=== PATIENT | female | born 1980 | race Caucasian/White ===

== ENCOUNTER → 2019-12-03 17:08 | Outpatient (CLI) | payer OTHER, SELFPAY ==
--- NOTE | ~2019-12-03 | MM_ITS ---
EXAMINATION: MM screening wolf BI w ace HISTORY: Baseline screening mammogram TECHNIQUE: Craniocaudal and mediolateral oblique 3-D tomosynthesis images were obtained and synthetic 2-D images were generated. CAD analysis was submitted and interpreted. COMPARISON: None, baseline BREAST PARENCHYMAL COMPOSITION: The breasts are heterogeneously dense, which may obscure small masses . FINDINGS: RIGHT BREAST: There is no evidence of suspicious mass, calcification, or architectural distortion to suggest malignancy. LEFT BREAST: There is possible architectural distortion in the subareolar aspect of the left breast. IMPRESSION: 1. Possible architectural distortion of the subareolar left breast. 2. Additional mammographic views and possible breast ultrasound are recommended to evaluate for malig mynor and establish a baseline given that this is the first mammographic examination. BI-RADS Category 0: Incomplete: Needs additional imaging evaluation. Reviewed, dictated and finalized at location A. IMPRESSION: 1. Possible architectural distortion of the subareolar left breast. 2. Additional mammographic views and possible breast ultrasound are recommended to evaluate for malignancy and establish a baseline given that this is the fir st mammographic examination. BI-RADS Category 0: Incomplete: Needs additional imaging evaluation.
== END ==
PROVIDERS: Visit Provider Obstetrics & Gynecology
DX: Z12.31 Encounter for screening mammogram for malignant neoplasm of breast (principal); R92.8 Other abnormal and inconclusive findings on diagnostic imaging of breast
CPT/HCPCS: 77063; 77067

== ENCOUNTER → 2019-12-24 09:22 | Outpatient (CLI) | payer OTHER, SELFPAY ==
--- NOTE | ~2019-12-24 | MM_ITS ---
EXAMINATION: MM diagnostic mammo unilat LT HISTORY: Possible architectural distortion reported in subareolar left breast on 12/03/2019 screening m ammogram TECHNIQUE: Additional 3-D tomosynthesis images of the left breast were performed and synthetic 2-D im ages were generated. CAD analysis was submitted and interpreted. COMPARISON: 12/03/2019 bilateral digital screening mammogram FINDINGS: No reproducible mass or architectural distortion, malignant calcification, skin thickening or retraction is evident. IMPRESSION: 1. No mammographic evidence of malignancy 2. Routine annual mammographic screening is recommended. BI-RADS Category 1: Negative Reviewed, dictated and finalized at location A.
== END ==
PROVIDERS: Visit Provider Obstetrics & Gynecology
DX: R92.8 Other abnormal and inconclusive findings on diagnostic imaging of breast (principal)
CPT/HCPCS: 77065

== ENCOUNTER 2020-01-04 07:53 | Outpatient (CLI) | payer OTHER, SELFPAY ==
--- NOTE | ~2020-01-04 | XR_ITS ---
EXAMINATION: XR barium swallow DATE: 01/04/2020 08:36 INDICATION: Dysphagia. TECHNIQUE: The patient drank thick barium, gas-producing crystals, and thin barium. Fluoroscopy of th e hypopharynx and esophagus was performed. Fluoroscopy exposure time was 0.5 minutes. The total numbe r of images was 267. The dose-area product was 0.9 Gy-cm^2. COMPARISON: None. FINDINGS: There is no mass or stricture of the esophagus. Esophageal motility is normal. There is no hiatal hernia. There was no gastroesophageal reflux with provocative maneuvers. IMPRESSION: 1. Normal esophagram. Reviewed, dictated and finalized at location A. IMPRESSION: 1. Normal esophagram.
== END 2020-01-04 07:54 | disposition home or self-care (01) ==
LOC: ANHIMG 07:54
PROVIDERS: PCP Family Medicine Adolescent Medicine; Visit Provider Otolaryngology
DX: R13.10 Dysphagia, unspecified (principal)
CPT/HCPCS: 74220

== ENCOUNTER 2020-05-27 15:13 | Emergency (ER) | payer OTHER, SELFPAY ==
--- NOTE | ~2020-05-27 | CT_ITS ---
EXAMINATION: CT abdomen pelvis w con DATE: 05/27/2020 17:29 INDICATION: Right-sided abdominal pain. History of colitis. TECHNIQUE: Computed tomography (CT) of the abdomen and pelvis was performed with 100 cc Omnipaque 350 intravenous contrast. The dose-length product was 241.45 mGy-cm. Automated exposure control and iter ative reconstruction technique were employed. COMPARISON: None. FINDINGS: Lung bases unremarkable. Heart size normal. There is a mass partially visualized right lowe r breast. No significant pleural or pericardial effusion. The liver, spleen, pancreas, adrenal glands and kidneys are unremarkable. Gallbladder is present. The re is a complex right adnexal cyst measuring 4.8 x 4 cm. Nonobstructive bowel gas pattern. Small amou nt of free fluid in the pelvis. No acute osseous abnormality. Moderate lumbar spondylosis lower lumba r spine. IMPRESSION: 1. Complicated 4.8 cm right adnexal cyst, likely ovarian. Reviewed, dictated and finalized at location A.
[2020-05-27 15:51] VITALS: BP 116/70; PULSE 85; RESP 14; TEMP 36.9; O2SAT 97
[2020-05-27 16:05] LABS: Basophils Percent Auto 0.4 % (0.2-1.2); Eosinophils Absolute Auto 0.1 K/mm3 (0-0.3); Eosinophils Percent Auto 0.9 % (0-4.4); Hematocrit 44.6 % (37.0-47.0); Hemoglobin 15.3 g/dL (12.0-15.0); Immature Granulocyte Absolute 0.02 K/mm3 (0.00-0.031); Immature Granulocyte Percent A 0.2 % (0-0.5); Lymphocytes Absolute Auto 1.93 K/mm3 (0.9-3.2); Mean Corpuscular HGB Conc 34.3 g/dl (32-36); Mean Corpuscular Hemoglobin 30.1 pg (26-34); Mean Corpuscular Volume 87.8 fl (80-100); Mean Platelet Volume 8.9 fl (7.4-10.4); Monocytes Absolute Auto 0.4 K/mm3 (0.1-0.6); Monocytes Percent Auto 5.2 % (2.6-8.5); Neutrophils Absolute Auto 5.6 K/mm3 (1.3-6.7); Neutrophils Percent Auto 69.3 % (45.5-73.1); Platelet Count Result 240 k/mm3 (150-375); Red Blood Count 5.08 M/mm3 (4.2-5.4); White Blood Count 8.1 K/mm3 (4.5-10.0)
[2020-05-27 16:13] LABS: Alanine Aminotransferase 14 U/L (4-35); Albumin Level 4.5 g/dL (3.5-5.1); Alkaline Phosphatase 47 U/L (38-126); Anion Gap 6 mmol/L (8-16); Aspartate Amino Transferase 18 U/L (14-36); Bilirubin,Total 0.5 mg/dL (0.2-1.3); Blood Urea Nitrogen 13 mg/dL (7-17); Carbon Dioxide 27 mmol/L (22-30); Chloride 106 mmol/L (98-107); Estimated CRCL calculation 68 ml/min; Estimated Glomerular Filt Rate > 60; Glucose 106 mg/dL (65-105); Lipase 68 U/L (23-300); Potassium 3.9 mmol/L (3.4-5.0); Sodium 139 mmol/L (137-145)
--- NOTE | 2020-05-27 16:23 | ED.ABDPAIN ---
HPI - Abdominal Pain General Chief Complaint: Abdominal Pain Stated Complaint: severe abd pain Time Seen by Provider: 05/27/20 16:22 Source: patient Mode of arrival: ambulatory Limitations: no limitations History of Present Illness HPI narrative: Pt presented for right sided abdominal pain. Pain is been present over 12 hours. Pain is dull, aching in nature, actually improved from earlier this morning. Patient states her pain was at its highest earlier this morning after she returned home from work. She states she was able to get some sleep and still had aching pain on the right side. Patient states she has a history of colitis and flareups which she occasionally takes budesonide for and follows with Dr. Vasquez with gastroenterology. Not currently on any steroids. Patient denies nausea, vomiting, diarrhea. She denies fever or chills. Related Data Home Medications Medication Instructions Recorded Confirmed Adult Probiotic 08/05/19 Trintellix 5 mg PO DAILY 08/05/19 08/05/19 oxybutynin chloride 10 mg PO DAILY 08/05/19 08/05/19 spironolactone 25 mg PO DAILY 08/05/19 08/05/19 cetirizine 10 mg tablet 10 mg PO DAILY 01/03/20 dextromethorphan-guaifenesin ER 60 1 tablet PO Q12H 01/03/20 mg-1,200 mg tab,extend release,12hr esomeprazole magnesium 20 mg 20 mg PO DAILY 01/03/20 capsule,delayed release loratadine 10 mg tablet 10 mg PO DAILY 01/03/20 budesonide PO 05/27/20 Allergies Allergy/AdvReac Type Severity Reaction Status Date / Time No Known Allergies Allergy Verified 05/27/20 16:15 Review of Systems Review of Systems: Narrative: CONSTITUTIONAL: Denies fever, chills CARDIOVASCULAR: Denies chest pain RESPIRATORY: Denies cough or dyspnea. GASTROINTESTINAL: Reports abdominal pain, nausea, denies vomiting or diarrhea GENITOURINARY: Denies dysuria or hematuria. SKIN: Denies rash or itching. MUSCULOSKELETAL: Denies back pain, joint pain, or myalgia. NEUROLOGIC: Denies headache, numbness, or weakness. [facility] Past Medical History Medical History Anxiety Colitis Depression GERD (gastroesophageal reflux disease) Surgical History Surgical History H/O hysterectomy for benign disease History of bilateral tubal ligation Social History Social History Smoking status: Smoker, status unknown Alcohol intake: current Gender identity (if verbalized by the patient): Female Exam Narrative: Exam Narrative: GENERAL: Awake, alert, conversant HEAD: Normocephalic, atraumatic. EYES: PERRLA and EOMI. ENT: Nares clear, no rhinorrhea or epistaxis. Mucous membranes moist. NECK: Supple. CHEST: No respiratory distress, breathing even and non labored HEART: Regular rate, sinus rhythm ABDOMEN:Non distended, mild right lower quadrant tenderness, no rebound or guarding EXTREMITIES: Normal range of motion. No edema. SKIN: Warm, dry, no rash. NEURO:No focal deficits. Alert and oriented x3 Course Vital Signs Vital signs: Vital Signs Temperature 36.9 C 05/27/20 15:51 Pulse Rate 85 05/27/20 15:51 Respiratory Rate 14 05/27/20 15:51 Blood Pressure 116/70 05/27/20 15:51 Pulse Oximetry 97 05/27/20 15:51 Temperature 36.8 C 05/27/20 18:10 Pulse Rate 44 L 05/27/20 18:10 Respiratory Rate 18 05/27/20 18:10 Blood Pressure 118/79 05/27/20 18:10 Pulse Oximetry 100 05/27/20 18:10 MDM - Abdominal Pain MDM Narrative Medical decision making narrative: Patient presented for evaluation of right lower quadrant abdominal pain. At the time of assessment, ABCs are intact and vital signs are stable. Patient with mild right lower quadrant tenderness without peritoneal signs. IV access obtained and labs are drawn. Laboratory results are reassuring. No UTI. No leukocytosis. CT scan does not show any appendicitis but does show a complex r
[2020-05-27 16:25] LABS: Add Urine Microscopic? NO; Appearance Urine Clear (Clear); Bilirubin Urine Negative (Negative); Blood Urine Negative (Negative); Color Urine Colorless (Yellow); Glucose Urine UA Negative (Negative); Ketones Urine Negative (Negative); Leukocyte Esterase Ur Negative LEU/UL (Negative); Nitrate Urine Negative (Negative); Protein Urine Negative (Negative); Specific Grav Ur 1.006 (1.001-1.035); Urobilinogen Urine Negative mg/dL (<2.0)
[2020-05-27 18:10] VITALS: BP 118/79; PULSE 44; RESP 18; TEMP 36.8; O2SAT 100
== END 2020-05-27 18:11 | disposition home or self-care (01) ==
PROVIDERS: Emergency Provider Emergency Medicine; PCP Family Medicine Adolescent Medicine
DX: N83.291 Other ovarian cyst, right side (principal); F41.9 Anxiety disorder, unspecified; F32.9 Major depressive disorder, single episode, unspecified; K21.9 Gastro-esophageal reflux disease without esophagitis; N63.10 Unspecified lump in the right breast, unspecified quadrant
CPT/HCPCS: 36415; 74177; 80053; 81003; 83690; 85025; 99284; Q9967

== ENCOUNTER 2020-06-07 09:57 | Outpatient (CLI) | payer OTHER, SELFPAY ==
--- NOTE | ~2020-06-07 | MMUS_ITS ---
EXAMINATION: MM diagnostic wolf BI w ace, US breast BI complete HISTORY: Breast mass TECHNIQUE: Additional 3-D tomosynthesis images of the breasts were performed and synthetic 2-D images were generated. CAD analysis was submitted and interpreted. High resolution bilateral breast ultraso und was performed. COMPARISON: Comparison to multiple prior studies sequentially, with oldest reviewed study dated 02/2020. BREAST PARENCHYMAL COMPOSITION: The breasts are heterogenously dense, which may obscure small masses. FINDINGS: MAMMOGRAPHIC FINDINGS: There are no suspicious masses, calcifications or architectural distortion in either breast to sugges t malignancy. ULTRASOUND: Bilateral breast ultrasound: Right breast echotexture is normal without focal solid or cystic mass. I n the left breast at 1:00, 1 cm from the nipple, there is a 6 mm cyst. At 7:00, 5 cm from the nipple, there is a 5 mm cyst. IMPRESSION: 1. No evidence for malignancy in either breast. Benign findings. 2. Routine yearly screening mammogram and regular clinical breast examination are recommended. BI-RADS Category 2: Benign finding(s). Reviewed, dictated and finalized at location A. IMPRESSION: 1. No evidence for malignancy in either breast. Benign findings. 2. Routine yearly screening mammogram and regular clinical breast examination a re recommended. BI-RADS Category 2: Benign finding(s).
== END 2020-06-07 09:58 | disposition home or self-care (01) ==
PROVIDERS: PCP Family Medicine Adolescent Medicine; Visit Provider Obstetrics & Gynecology
DX: N63.10 Unspecified lump in the right breast, unspecified quadrant (principal)
CPT/HCPCS: 76641; 77062; 77066; G0279

== ENCOUNTER → 2021-01-09 15:57 | Outpatient (CLI) | payer OTHER, SELFPAY ==
--- NOTE | ~2021-01-09 | MM_ITS ---
EXAMINATION: MM screening [facility] BI w ace HISTORY: Screening TECHNIQUE: Craniocaudal and mediolateral oblique 3-D tomosynthesis images were obtained and synthetic 2-D images were generated. CAD analysis was submitted and interpreted. COMPARISON: 12/03/2019 BREAST PARENCHYMAL COMPOSITION: There are scattered areas of fibroglandular density. FINDINGS: The right breast is stable without evidence for malignancy. There is an enlarging 8 mm mass in the lower inner quadrant of the left breast near the skin surface. There are additional benign-ap pearing left breast masses which are not significantly changed. There is no evidence of suspicious ma ss, calcification, or architectural distortion to suggest malignancy in either breast. There has been no suspicious interval change. IMPRESSION: 1. Enlarging left breast mass, lower inner quadrant. 2. Complete left breast ultrasound recommended. BI-RADS Category 0: Incomplete: Needs additional imaging evaluation. Reviewed, dictated and finalized at location A.
== END ==
PROVIDERS: Visit Provider Obstetrics & Gynecology
DX: Z12.31 Encounter for screening mammogram for malignant neoplasm of breast (principal)
CPT/HCPCS: 77063; 77067

== ENCOUNTER → 2021-02-07 08:16 | Outpatient (CLI) | payer OTHER, SELFPAY ==
--- NOTE | ~2021-02-07 | US_ITS ---
EXAMINATION: US breast LT limited HISTORY: Left breast mass on screening mammogram TECHNIQUE: Limited left breast ultrasound is performed. COMPARISON: 01/09/2021, 06/07/2020 FINDINGS: There is a 10 mm x 4 mm oval, circumscribed, parallel, cystic mass with internal septation at the 6:00 location 3.5 cm from the nipple corresponding to the finding in question on recent screen ing mammogram. The mass is slightly increased in size since the most recent comparison ultrasound. Th ere are no posterior features or internal vascularity. IMPRESSION: Likely complicated cyst of left breast. Follow-up cartilage left breast ultrasound in six months is r ecommended. BI-RADS category 3, probably benign findings. Reviewed, dictated and finalized at location A. IMPRESSION: Likely complicated cyst of left breast. Follow-up cartilage left breast ultraso und in six months is recommended. BI-RADS category 3, probably benign findings.
== END ==
PROVIDERS: Visit Provider Obstetrics & Gynecology
DX: N60.02 Solitary cyst of left breast (principal)
CPT/HCPCS: 76642

== ENCOUNTER 2021-06-15 10:25 | Outpatient (CLI) | payer OTHER, SELFPAY | END 2021-06-15 10:26 | disposition home or self-care (01) | LOC: ANHSURGERY 10:31 | PROVIDERS: Visit Provider Obstetrics & Gynecology | DX: Z01.812 Encounter for preprocedural laboratory examination (principal); N39.3 Stress incontinence (female) (male) | CPT/HCPCS: 36415; 86850; 86900; 86901 ==

== ENCOUNTER 2021-06-22 | Day surgery (SDC) | payer OTHER, SELFPAY ==
[2021-06-14 11:20] VITALS: BMI 25.8
--- NOTE | 2021-06-20 07:54 | PM.IMHP ---
H&P: HPI History of Present Illness Date/Time: 06/20/21 07:54 This 41-year-old female with pelvic pain and stress urinary incontinence refractory to physical therapy. The patient complains of stress urinary incontinence. She has tried Kegel's and had no success. She is status post hysterectomy. She also was had pelvic pain and dyspareunia. Ultrasound was relatively help less. Risks and benefits of these procedures were reviewed in great detail Chief Complaint: Stress urinary incontinence and pelvic pain Review of Systems Review of Systems: All systems reviewed & are unremarkable except as noted in HPI and below PMFSH Past Medical History Medical History Anxiety Bloating Colitis Depression GERD (gastroesophageal reflux disease) Microscopic colitis Surgical History Surgical History H/O hysterectomy for benign disease History of bilateral tubal ligation Social History Social History Smoking packs per day: 0.5 Smoking cigarettes per day: 10.0 Years smoked: 18 Smoking pack-years: 9.00 Smoking status: Former smoker Tobacco type: cigarettes Smoking end date: 07/30/20 Alcohol intake: current Substance use: never Gender identity (if verbalized by the patient): Female Spiritual care concerns: No Meds Home Medications and Allergies Home Medications Medication Instructions Recorded Confirmed Type Adult Probiotic 1 cell PO DAILY 08/05/19 06/14/21 History Trintellix 5 mg PO DAILY 08/05/19 06/14/21 History oxybutynin chloride 10 mg PO DAILY 08/05/19 06/14/21 History cetirizine 10 mg tablet 10 mg PO DAILY 01/03/20 06/14/21 History esomeprazole magnesium 20 mg 20 mg PO DAILY 01/03/20 06/14/21 History capsule,delayed release calcium-vits T7-G-X9-minerals 1 tablet PO BID 06/14/21 06/14/21 History [Bone Essentials] zinc sulfate-vitamin C [Vitamin C 1 tablet PO DAILY 06/14/21 06/14/21 History Plus Zinc] Allergies Allergy/AdvReac Type Severity Reaction Status Date / Time No Known Allergies Allergy Verified 06/14/21 11:14 Exam Const: General: no acute distress Eyes: General: appearance normal, both eyes and all related structures Neck: Neck: supple and no JVD Thyroid: thyroid normal Resp: Effort & Inspection: normal respiratory effort Auscultation: clear to auscultation bilaterally Cardio: Rate: regular rate Rhythm: regular rhythm GI: Inspection: non-distended GI Palp: Yes Soft to palpation, No Tenderness to palpation present (GI) and No Guarding due to palpation present (GI) Auscultation: normal bowel sounds : External Female Exam: normal external appearance Speculum Exam - Vagina: normal appearance of the vagina and tenderness (Urethral hyper reactive to Valsalva maneuver) Speculum Exam - Cervix: Cervix absent Bimanual exam- vagina & uterus: uterus absent Bimanual Exam- Adnexa, other: tender bilaterally Skin: General skin exam: no rashes or lesions noted Extrem: General: normal to inspection and no edema Psych: Mental Status: mental status grossly normal Affect: normal affect Assessment and Plan Additional Plan Impression: Stress urinary incontinence and pelvic pain in a patient status post hysterectomy Plan: Tension-free vaginal tape with cystoscopy. Diagnostic laparoscopy
[2021-06-22] VITALS (11 sets, daily range): BP systolic 101–126; BP diastolic 59–86; PULSE 45–99; RESP 12–18; TEMP 36.2–36.9; O2SAT 98–100
--- NOTE | 2021-06-22 07:13 | WPDHPUPDATE1 ---
History and Physical Update Update Date/Time: 06/22/21 07:13 History and Physical has been reviewed, including an updated exam of the patient. There are NO changes in the patient's condition. Risks, benefits, and alternatives have been discussed and questions answered. Patient agrees to proceed with procedure.
[2021-06-22] MEDS: LACTATED RINGERS 1,000 ML 30 ML IV CONT ×3 (12:05→17:03)
[2021-06-22] MEDS: ACETAMINOPHEN 500 MG TABLET 1000 MG PO (12:12)
[2021-06-22] MEDS: KETOROLAC 15 MG/ML VIAL (*BKC) IV PUSH (12:13)
--- NOTE | 2021-06-22 12:49 | WPDANESEPPF ---
Anes - Initial Pre Proc Eval Procedure: Operation Date: 06/22/21 13:30 Proposed Procedures p Tension Free Vaginal Taping - Kingsley Leblanc MD s Diagnostic Laparoscopy - Kingsley Leblanc MD Date/Time: 06/22/21 12:49 Surgeon: Kingsley Leblanc MD Pre Op Diagnosis: EN Patient Data Age: 41 Gender: F Height: 1.68 m Weight: 72.8 kg Last Vital Signs Temp 36.9 C 06/22/21 12:19 Pulse 45 L 06/22/21 12:19 Resp 18 06/22/21 12:19 BP 107/61 06/22/21 12:19 Pulse Ox 98 06/22/21 12:19 Allergies Allergy/AdvReac Type Severity Reaction Status Date / Time No Known Allergies Allergy Verified 06/22/21 11:31 Home Medications Medication Instructions Recorded Confirmed Type Adult Probiotic 1 cell PO DAILY 08/05/19 06/22/21 History Trintellix 5 mg PO DAILY 08/05/19 06/22/21 History oxybutynin chloride 10 mg PO DAILY 08/05/19 06/22/21 History cetirizine 10 mg tablet 10 mg PO DAILY 01/03/20 06/22/21 History esomeprazole magnesium 20 mg 20 mg PO DAILY 01/03/20 06/22/21 History capsule,delayed release calcium-vits I2-Z-D6-minerals 1 tablet PO BID 06/14/21 06/22/21 History [Bone Essentials] zinc sulfate-vitamin C [Vitamin C 1 tablet PO DAILY 06/14/21 06/22/21 History Plus Zinc] hydrocodone-acetaminophen 1 tablet PO Q4H PRN #30 tablet 06/22/21 Rx Patient hx anesthesia problems: none Family hx anesthesia problems: none Results Review: All pre-operative results and documents have been reviewed as part of the pre-operative evaluation. [facility], [facility] Past Medical History Medical History Anxiety Bloating Colitis Depression GERD (gastroesophageal reflux disease) Microscopic colitis Surgical History Surgical History H/O hysterectomy for benign disease History of bilateral tubal ligation Social History Social History Smoking packs per day: 0.5 Smoking cigarettes per day: 10.0 Years smoked: 18 Smoking pack-years: 9.00 Smoking status: Former smoker Tobacco type: cigarettes Smoking end date: 07/30/20 Alcohol intake: current Substance use: never Living arrangements: with family Gender identity (if verbalized by the patient): Female Spiritual care concerns: No Anes - Eval Final PreProcedure Day of Procedure 06/22/21 12:49 Patient weight: overweight Heart: regular rate and rhythm Lungs: clear to auscultation Airway: Mallampati scale class II Neurological: alert and oriented Last oral intake: >/= 8 hours ASA classification: II Emergent: no Anesthetic plan: proceed Anesthesia type and monitoring: general ETT and standard monitoring Results Review: All pre-operative results and documents have been reviewed as part of the pre-operative evaluation. Informed Consent: The patient's anesthetic plan and its attendant risks and benefits were discussed with the patient/family/POA. Questions were solicited and answers provided to the satisfaction of the patient/family/POA.
[2021-06-22] MEDS: SCOPOLAMINE 1.5 MG PATCH TRANSDERM (13:13)
[2021-06-22] MEDS: ceFAZolin 2 GM/D5W 50 ML 2 GM/50 ML BAG IVPB (13:16)
--- NOTE | 2021-06-22 14:20 | P.OP_ITS ---
Procedure Note - Detailed Date of Procedure 06/22/21 Pre-op Diagnosis EN Pelvic pain and endometriosis Left ovarian cyst Post-op Diagnosis same Procedure Performed laparoscopy with destruction of endometriosis and left ovarian cyst Cystoscopy Tension-free vaginal tape Surgeon Kingsley Leblanc MD Anesthesia general Indications this is a 41-year-old status post hysterectomy with pelvic pain and stress urinary incontinence Findings on laparoscopy absent uterus. Ovaries and tubes were present with the left ovarian cyst. Endometriosis along the left and right uterosacral ligaments Description of Procedure the patient was prepped draped in the normal sterile fashion placed in the dorsal lithotomy position. Under excellent general trach anesthesia weighted speculum placed in posterior fornix vagina. A sponge stick was placed in the vagina. The gloves were changed An infraumbilical incision made the Veress needle passed in the abdomen. Abdomen filled with CO2 gas [id number]. The 5mm trocar advanced under direct visualization assuring no injury. The patient placed in Trendelenburg and a suprapubic incision made. The 5mm trocar advanced under direct visualization assuring no injury. The areas of endometriosis were seen in photo documentation undertaken cauterization was undertaken at 35 w per 2nd without difficulty. Irrigation was undertaken. A left ovarian cyst was present and this was opened in linear fashion and drained of clear fluid. The gas removed from the abdomen and the trocars removed. The incisions closed with 4 O Monocryl and glue. Attention was turned to the cystoscopy. A 18 [place] catheter was placed in the bladder draining clear urine. Mid urethral incision was made and the lateral bladder spaces entered by blunt dissection. The catheter guide was placed in the urethra retracted laterally the right retropubic bladder space entered at a 45 degree angle upto30? and through the skin the urethra was retracted to the opposite side and this was followed on the left side. The catheter was removed and a 17 degree cystoscope was inserted and no injury seen. These were then pulled up to the open tightness of an open PN. The plastic removed and tape cut at the suprapubic area. The incision the vagina closed with running Omaira chromic. Blood loss was estimated at5cc and the catheter was then removed. All sponge needle instrument counts were correct. There were no immediate complications Estimated Blood Loss 5 Drains No Packing No Pathology none sent Complications No immediate complications Condition stable
[2021-06-22] MEDS: fentaNYL CITRATE INJ (*CRX) 100 MCG/2 ML VIAL 25 MCG IV PUSH ×4 (14:39→14:55)
[2021-06-22] MEDS: oxyCODONE HCL (*CRX) 5 MG TAB IR PO (15:47)
== END 2021-06-22 17:45 | disposition home or self-care (01) ==
PROVIDERS: Visit Provider Obstetrics & Gynecology
PROC: 0TSD0ZZ Reposition Urethra, Open Approach (ICD-10-PCS; CPT 57288; principal; 2021-06-22 13:30)
PROC: (CPT 49320; 2021-06-22 13:30)
DX: N39.3 Stress incontinence (female) (male) (principal); R10.2 Pelvic and perineal pain; N80.3 Endometriosis of pelvic peritoneum; N83.202 Unspecified ovarian cyst, left side; K21.9 Gastro-esophageal reflux disease without esophagitis; F41.8 Other specified anxiety disorders; Z87.891 Personal history of nicotine dependence
CPT/HCPCS: 57288; 58662; 36415; 86850; 86900; 86901; A9270; C1771; J0330; J0690; J1100; J1170; J1885; J2250; J2405; J2704; J3010; J7030; J7120; Q9968

== ENCOUNTER → 2021-09-19 09:16 | Outpatient (CLI) | payer OTHER, SELFPAY ==
--- NOTE | ~2021-09-19 | US_ITS ---
EXAMINATION: US breast LT limited HISTORY: Six-month follow-up for probably benign left breast mass TECHNIQUE: Limited left breast ultrasound is performed at the 6:00 location. COMPARISON: 02/07/2021 FINDINGS: The previously described mass at the 6:00 location 3.5 cm from the nipple is no longer iden tified. No suspicious cystic or solid mass is present. IMPRESSION: No suspicious mass identified. Routine screening mammography is recommended. BI-RADS Category 1: Negative Reviewed, dictated and finalized at location A. ATIENT PHLEBOTOMIST
== END ==
PROVIDERS: Visit Provider Obstetrics & Gynecology
DX: R92.8 Other abnormal and inconclusive findings on diagnostic imaging of breast (principal)
CPT/HCPCS: 76642

== ENCOUNTER → 2022-01-16 13:23 | Outpatient (CLI) | payer OTHER, SELFPAY ==
--- NOTE | ~2022-01-16 | MM_ITS ---
EXAMINATION: MM screening wolf BI w ace HISTORY: Screening mammogram TECHNIQUE: Craniocaudal and mediolateral oblique 3-D tomosynthesis images were obtained and synthetic 2-D images were generated. CAD analysis was submitted and interpreted. COMPARISON: 09/19/2021, 02/07/2021 Limited left breast ultrasound examination / bilateral screening mammogram 06/07/2020 bilateral diagnostic mammography and bilateral breast ultrasound examination 12/24/2019 left diagnostic mammogram 12/03/2019 bilateral screening mammogram BREAST PARENCHYMAL COMPOSITION: FINDINGS: New circumscribed 6.5 mm mass in the anterior outer left breast on CC projection (CC Tomosy nthesis image 40/70). Diagnostic left mammogram and left breast ultrasound examination recommended. Otherwise there is no evidence of suspicious mass, calcification, or architectural distortion to sug gest malignancy in either breast. There has been no other suspicious interval change. IMPRESSION: 1. New circumscribed 6.5 mm left breast mass 2. Diagnostic left mammogram and left breast ultrasound examination are recommended. BI-RADS Category 0: Incomplete: Needs additional imaging evaluation. Reviewed, dictated and finalized at location A. IMPRESSION: 1. New circumscribed 6.5 mm left breast mass 2. Diagnostic left mammogram and left breast ultrasound examination are recomme nded. BI-RADS Category 0: Incomplete: Needs additional imaging evaluation.
== END ==
PROVIDERS: Visit Provider Obstetrics & Gynecology
DX: Z12.31 Encounter for screening mammogram for malignant neoplasm of breast (principal); R92.8 Other abnormal and inconclusive findings on diagnostic imaging of breast
CPT/HCPCS: 77063; 77067

== ENCOUNTER → 2022-01-25 08:58 | Outpatient (CLI) | payer OTHER, SELFPAY ==
--- NOTE | ~2022-01-25 | MMUS_ITS ---
EXAMINATION: MM diagnostic wolf LT w ace, US breast LT limited HISTORY: Follow-up left breast mass TECHNIQUE: Additional 3-D tomosynthesis images of the left breast were performed and synthetic 2-D im ages were generated. CAD analysis was submitted and interpreted. High resolution Limited left breast ultrasound was performed. COMPARISON: Comparison to multiple prior studies sequentially, with oldest reviewed study dated 02/2020. BREAST PARENCHYMAL COMPOSITION: The breasts are heterogenously dense, which may obscure small masses FINDINGS: MAMMOGRAPHIC FINDINGS: There are 2 adjacent masses in the upper outer quadrant of the left breast, anterior depth. No suspic ious calcifications or architectural distortion. ULTRASOUND: Limited left breast ultrasound: At 12:00, 3 cm from the nipple there are 2 adjacent cysts correspondi ng to the mammographic finding, largest measuring 7 mm. At 3:00 near the areola there is a cluster of microcysts measuring 6 mm. No suspicious masses to suggest malignancy. IMPRESSION: 1. No evidence for malignancy in the left breast. Benign findings. 2. Routine yearly screening mammogram and regular clinical breast examination are recommended. BI-RADS Category 2: Benign finding(s). Reviewed, dictated and finalized at location A. IMPRESSION: 1. No evidence for malignancy in the left breast. Benign findings. 2. Routine yearly screening mammogram and regular clinical breast examination a re recommended. BI-RADS Category 2: Benign finding(s).
== END ==
PROVIDERS: PCP Obstetrics & Gynecology; Visit Provider Obstetrics & Gynecology
DX: N60.02 Solitary cyst of left breast (principal)
CPT/HCPCS: 76642; 77061; 77065; G0279

== ENCOUNTER 2022-07-26 09:05 | Outpatient (CLI) | payer OTHER, SELFPAY ==
--- NOTE | 2022-07-26 09:18 | ECG_ITS ---
Measurements Intervals [place] Rate: 60 P: 55 PA: 130 QRS: -26 QRSD: 80 T: 19 QT: 391 QTc: 394 Interpretive Statements SINUS RHYTHM BASELINE ARTIFACT LOW QRS VOLTAGE IN PRECORDIAL LEADS [QRS DEFLECTION < 1.0 mV IN CHEST LEADS] CANNOT RULE OUT SEPTAL MYOCARDIAL INFARCTION [40+ ms Q WAVE IN V1/V2], PROBABLY OLD ABNORMAL ECG NO PREVIOUS ECG AVAILABLE FOR COMPARISON Electronically Signed On 07-26-2022 16:44:41 CDT by Neel Newman M.D.
[2022-07-26 09:46] LABS: Hematocrit 41.9 % (37.0-47.0); Hemoglobin 14.2 g/dL (12.0-15.0)
== END 2022-07-26 09:06 | disposition home or self-care (01) ==
LOC: ANHSURGERY 09:09
PROVIDERS: Anesthesiology; PCP Registered Nurse; Visit Provider Surgery Plastic and Reconstructive Surgery
DX: Z01.818 Encounter for other preprocedural examination (principal); R94.31 Abnormal electrocardiogram [ECG] [EKG]
CPT/HCPCS: 36415; 85014; 85018; 93005

== ENCOUNTER 2022-07-31 18:25 | Observation (INO) | payer OTHER, SELFPAY ==
--- NOTE | 2022-07-24 10:40 | PC.NURSE ---
Report to the Outpatient Waiting Room, entrance under the green pavilion located off [facility], at time _0730_ on date _07/30/22_. Planned Procedure Time: _0930_. Time changes happen often and if your time is changed the preop area will call you the afternoon before. - You and your visitor will be asked to self-screen and do not enter if you have any COVID symptoms. - We encourage only one visitor and NO visitors under age 16 are allowed at this time. Your visitor will receive communication by the phone number that is given day of service. - The patient visitor is requested to social distance or may leave the building when not with patient due to restrictions. - A mask is required within the hospital. Patients may have clear liquids (water, carbonated beverages, clear teas, apple juice) until 3 hours prior to surgery with a maximum of 20 ounces. - No food from midnight until time of surgery (stop clear liquids by 0630) - Infants may have breast milk until 4 hours before surgery, infant formula 6 hours prior to surgery. - Children will be allowed to drink immediately following surgery. If applicable, please bring a bottle or sippy cup to assist with drinking. Juice, water, soda, and popsicles are readily available. For infants on formula, please bring formula the day of surgery. Pacifiers are allowed. Take the following medications with a SIP of water the morning of surgery: __meds are taken HS Medications to discontinue per physician ___fish oil and supplements _3 days prior___ Date to take last dose Please no make-up, nail swazi, hairspray, perfume, deodorant, or body powder the day of surgery. No jewelry (including any body piercings) or valuables the day of surgery, leave them at home. Please take a shower or bath the night before, or the morning of, surgery with an antibacterial soap. Wear comfortable, loose fitting clothing. Children are encouraged to wear pajamas. - Jewelry must be removed prior to entering the operating room. Rings and piercings that are not removed may be cut off. - The hospital will not accept responsibility for valuables. - Please leave all valuables, including medications, at home the day of surgery. If you are going home after surgery, a licensed dedicated truck driver must drive you home. - NO public transportation without another adult. - We recommend that an adult stay with you for 24 hours following discharge. - We also recommend that you do not drive, make important decision, drink alcoholic beverages, or take any drugs that were not prescribed by your health care provider for at least 24 hours after your discharge time. For Pediatric surgeries, we recommend two adults accompany the child home. Follow any additional instructions given to you from your surgeon. If you or anyone in your household have experienced Covid symptoms in the past week, please notify your surgeon or the nurse liaison at the phone number below for possible testing. Telephone instructions given to _patient__and asked if any additional questions and then verbalized understanding. Patient advised to call surgeon office or pre surgery nurse liaison [phone] if any additional questions.
[2022-07-24 10:52] VITALS: BMI 26.6
[2022-07-30] VITALS (7 sets, daily range): BP systolic 102–118; BP diastolic 70–79; PULSE 66–110; RESP 14–18; TEMP 36.4–37.2; O2SAT 95–100
[2022-07-30 08:05] LABS: Urine Cotinine NEGATIVE
[2022-07-30] MEDS: LACTATED RINGERS 1,000 ML 30 ML IV CONT ×2 (08:06→16:16)
--- NOTE | 2022-07-30 08:48 | WPDANESEPPF ---
Anes - Initial Pre Proc Eval Procedure: Operation Date: 07/30/22 09:30 Proposed Procedures p Bilateral Breast Mastopexy with Galaflex - Juan Goldman MD s Abdominoplasty with Liposuction - Juan Goldman MD Date/Time: 07/30/22 08:48 Surgeon: Juan Goldman MD Pre Op Diagnosis: Micromastia,Breast ptosis,Skin Laxity Patient Data Age: 42 Gender: F Height: 1.68 m Weight: 74.8 kg Last Vital Signs Temp 36.4 C L 07/30/22 07:45 Pulse 66 07/30/22 07:45 Resp 16 07/30/22 07:45 BP 112/74 07/30/22 07:45 Pulse Ox 99 07/30/22 07:45 O2 Del Method Room Air 07/30/22 07:45 Allergies Allergy/AdvReac Type Severity Reaction Status Date / Time No Known Allergies Allergy Verified 07/30/22 08:12 Home Medications Medication Instructions Recorded Confirmed Type lactobacillus combination no.8 3 1 cell PO DAILY 08/05/19 07/24/22 History billion cell capsule (Adult Probiotic) oxybutynin chloride 10 mg 10 mg PO DAILY 08/05/19 07/24/22 History tablet,extended release 24 hr vortioxetine 5 mg tablet 20 mg PO DAILY 08/05/19 07/24/22 History (Trintellix) cetirizine 10 mg tablet (Zyrtec) 10 mg PO DAILY 01/03/20 07/24/22 History hydrocodone 5 mg-acetaminophen 325 1 tablet PO Q4H PRN pain #30 tabs 06/22/21 07/24/22 Rx mg tablet doxycycline hyclate 50 mg capsule 50 mg PO DAILY 10/16/21 07/30/22 History Wellbutrin 5 mg PO HS 07/24/22 07/24/22 History Laboratory Tests 07/30/22 07:51 Cotinine Negative Patient hx anesthesia problems: none and other (motion sickness) Family hx anesthesia problems: other (father slow to awaken) Results Review: All pre-operative results and documents have been reviewed as part of the pre-operative evaluation. [facility] Past Medical History Medical History Anxiety Bloating Colitis Depression GERD (gastroesophageal reflux disease) Microscopic colitis Surgical History Surgical History H/O hysterectomy for benign disease History of bilateral tubal ligation Hx of laparoscopy Family History Family History Other Diabetes mellitus Hypertension Social History Social History Smoking packs per day: 0.5 Smoking cigarettes per day: 10.0 Years smoked: 18 Smoking pack-years: 9.00 Smoking status: Former smoker Tobacco type: cigarettes Smoking end date: 07/30/20 Alcohol intake: current Drinks per week: 1 Alcohol use details: some weeks none Substance use: never Substance use type: does not use Last use: Jul, Living arrangements: with family Additional living arrangements comments: Trent Rivera Gender identity (if verbalized by the patient): Female Spiritual care concerns: No Anes - Eval Final PreProcedure Day of Procedure 07/30/22 08:48 Patient weight: overweight Heart: regular rate and rhythm Lungs: clear to auscultation Airway: Mallampati scale class II Neurological: alert and oriented Last oral intake: >/= 8 hours ASA classification: II Emergent: no Anesthetic plan: proceed Anesthesia type and monitoring: general ETT and standard monitoring Results Review: All pre-operative results and documents have been reviewed as part of the pre-operative evaluation. Informed Consent: The patient's anesthetic plan and its attendant risks and benefits were discussed with the patient/family/POA. Questions were solicited and answers provided to the satisfaction of the patient/family/POA.
[2022-07-30] MEDS: SCOPOLAMINE 1.5 MG PATCH TRANSDERM (09:21)
--- NOTE | 2022-07-30 09:31 | WPDHPUPDATE1 ---
History and Physical Update Update Date/Time: 07/30/22 09:31 History and Physical has been reviewed, including an updated exam of the patient. There are NO changes in the patient's condition. Risks, benefits, and alternatives have been discussed and questions answered. Patient agrees to proceed with procedure.
--- NOTE | 2022-07-30 10:07 | W.PM.PROC2 ---
Procedure Note - Detailed Date of Procedure 07/30/22 Pre-op Diagnosis Micromastia,Breast ptosis,Skin Laxity Post-op Diagnosis Same Procedure Performed 1. Bilateral mastopexy with Galaflex 2. Progressive tension abdominoplasty with suction lipectomy Surgeon Juan Goldman MD Anesthesia General Findings Inverted T Superior medial pedicle mastopexy Galaflex - REF [id number] Lot [id number] Exp 10/29/2024 Lipoaspirate: 3,000 cc Tissue removed: 1,160 grams Description of Procedure They are here today for the above. Previously and again today the risks, benefits, alternatives were discussed in extensive detail. I wanted them to be very realistic about the risks involved as well as expectations. We discussed aftercare and what to monitor for. I was very upfront about the risks of wound breakdown leading to loss of skin, open wounds, and need for additional procedures with permanent abdominal deformity. We discussed DVT/PE risks and management. Made sure answered all of their questions to their satisfaction today and consent was obtained. Marked in the preoperative holding area with their verification. The patient was taken to the operating room placed supine on the operating table. Anesthesia was provided by anesthesiology. A surgical time-out was taken. She was prepped and draped in a standard sterile fashion. Breast Eleven blade was utilized to make a stab incision and infiltrated with low volume tumescent solution. The breast was tailor tacked into place. I tailor tacked the breast into position. Placed her in a sitting position. Verified the nipple-areolar location based on preoperative planning as well as intraoperative observations and measurements in full agreement. She was placed supine. I de-epithelialized the pedicle. I then de-epithelialized the inferior breast tissue to create an autoaugmentation flap based on intercostal traveling freight agent. I elevated medial and lateral tissue flaps as well for planned closure. The autoaugmentation flap was sutured to the chest wall with 2-0 PDS. Galaflex had been soaking on the back table in betadine solution. It was trimmed and sutured into place with 2-0 Vicryl. I closed along the IMF with 2-0 Stratafix. Along the vertical with 2-0 PDS. I closed around the Jai with 3-0 strata fix. 3-0 Monocryl along the vertical. 3-0 Stratafix along the IMF. I finally closed everything with running subcuticular 4-0 Monocryl and tissue glue. Fluffs and surgical bra were placed. Abdomen I placed the patient in a flexed position to verify the upper and lower markings would reach. I then placed supine. A thorough abdominal examination was completed. Stab incisions were made and tumescent solution infiltrated. A liposuction basket cannula was utilized to provide discontinuous undermining. A 10 blade was used to make the upper incision. I continued dissection down to the level of fascia. Elevated just what was necessary for repair of the diastasis. I then again flexed the bed to verify the upper skin flap would reach the lower markings without tension. Once verified I placed her supine once again and a 10 blade used to make the lower incision. I elevated up to level the umbilicus and left the umbilicus intact on a well-vascularized stalk. The intervening tissue was removed. A 2 mm blunt cannula with 0.5% bupivicaine was injected deep to the fascia bilaterally. I plicated the diastasis recti using 0 PDO stratafix barbed suture. This was in 2 separate layers using 2 separate sutures as well. I repaired around the umbilicus leaving plenty of room for well-vascularized stalk of the umbilicus with 2-0 PDS. I also repaired lateral to the rectus using two layers of 0 PDO stratafix. The patient was flexed and starting from superior to inferior began plication using 2-0 Vicryl to obliterate all space in a standard progressive tension fashion. At the umbilicus I marked out the location of the sk
[2022-07-30] MEDS: ceFAZolin 2 GM/D5W 50 ML 2 GM/50 ML BAG IVPB (10:14)
[2022-07-30] MEDS: TRANEXAMIC ACID 1,000MG/ISO100 1,000 MG/100 ML BAG 200 MG IVPB (10:14)
[2022-07-30] MEDS: NACL 0.9% IRRIG POUR BOTTLE 900 ML, GENTAMICIN SULFATE INJ 160 MG, ceFAZolin 2 GM, POVI... IRRIGATION (12:06)
[2022-07-30] MEDS: LACTATED RINGERS IRRIG 1,000 ML, LIDOCAINE HCL 1% LOCAL INJ 50 ML, EPINEPHrine HCL INJ ... INFILTRATE (14:44)
[2022-07-30] MEDS: LIDOCAINE 1% BUFFERED WITH 8.4% SODIUM BICARB 1 ML SYRINGE 30 ML INFILTRATE (14:46)
[2022-07-30] MEDS: BUPIVACAINE/EPINEPHRINE 0.25% 50 ML VIAL 30 ML INFILTRATE (14:47)
[2022-07-30] MEDS: fentaNYL CITRATE INJ (*CRX) 100 MCG/2 ML VIAL 25 MCG IV PUSH ×3 (16:39→16:57)
--- NOTE | 2022-07-30 17:29 | PC.NURSE ---
This patient, Darlene Bain, was received from PACU on 07/30/22 at 1729. Patient/family oriented to unit policies and routines
[2022-07-30] MEDS: KETOROLAC 30 MG/ML VIAL (*BKC) (17:49)
[2022-07-30] MEDS: LACTATED RINGERS 1,000 ML 125 ML IV CONT (17:49)
[2022-07-30] MEDS: GABAPENTIN 300 MG CAPSULE PO (18:54)
[2022-07-30] MEDS: carisoprodoL (*CRX) 350 MG TABLET PO (18:54)
[2022-07-30] MEDS: oxyCODONE/ACETAMINOPHEN (*CRX) 5-325 MG TABLET PO ×2 (18:54→23:07)
[2022-07-30] MEDS: ENOXAPARIN 40 MG/0.4 ML SYRINGE SUB-Q (23:00)
[2022-07-30] MEDS: DOCUSATE SODIUM 100 MG CAPSULE PO (23:00)
[2022-07-31] MEDS: carisoprodoL (*CRX) 350 MG TABLET PO ×4 (01:05→18:55)
[2022-07-31] MEDS: oxyCODONE/ACETAMINOPHEN (*CRX) 5-325 MG TABLET PO ×4 (04:23→18:55)
[2022-07-31 04:30] VITALS: BP 109/69; PULSE 76; RESP 16; TEMP 36.6
[2022-07-31 07:15] VITALS: BP 93/58; PULSE 83; RESP 12; TEMP 37.1; O2SAT 96
--- NOTE | 2022-07-31 07:17 | WPDPN ---
Progress Note: A&P Assessment and Plan (1) Skin laxity: Code(s): L57.4 - Cutis laxa senilis Status: Acute Assessment and Plan: Doing well after mastopexy with Galaflex, progressive tension abdominoplasty with suction lipectomy. Will plan for discharge home. Today we had a lengthy discussion about the care, what to monitor for, activity limitations. This was a lengthy open ended conversation making sure she was well informed. She voice a clear understanding. Will see her back. Call with any questions or concerns. (2) Localized adiposity: Code(s): E65 - Localized adiposity Status: Acute (3) Breast ptosis: Code(s): N64.81 - Ptosis of breast Status: Acute Subjective Date/time seen: 07/31/22 07:17 Interval history: She is doing very well after mastopexy with Galaflex, progressive tension abdominoplasty with suction lipectomy. Overnight doing well. No f/c. No n/v. No SOB. No CP. Ambulated this AM. Review of Systems Review of Systems: All systems reviewed & are unremarkable except as noted in HPI and below Exam Narrative: A&O NOD Resp unlabored Bilateral breast healing well. No signs of infection. No hematoma. No seroma. Good color / cap refill. Abdomen / flank healing well. No signs of infection. No hematoma. No seroma. Good color / cap refill. No calf tenderness. Negative Homann's. Objective Data Vital Signs Vital Signs: Vital Signs - 24 hr 07/30/22 07:45 07/30/22 16:20 07/30/22 16:35 Temperature 36.4 C L 37.2 C Pulse Rate 66 110 H 104 H Respiratory Rate 16 18 15 Blood Pressure 112/74 102/70 117/79 Pulse Oximetry 99 100 100 Oxygen Delivery Room Air Simple Face Mask Simple Face Mask Oxygen Flow Rate 8 8 07/30/22 16:50 07/30/22 17:05 07/30/22 17:30 Temperature 36.9 C Pulse Rate 106 H 107 H 107 H Respiratory Rate 14 16 18 Blood Pressure 115/79 110/74 118/79 Pulse Oximetry 100 99 95 Oxygen Delivery Simple Face Mask Room Air Oxygen Flow Rate 8 07/30/22 23:00 07/31/22 04:30 Temperature 36.7 C 36.6 C Pulse Rate 82 76 Respiratory Rate 16 16 Blood Pressure 106/71 109/69 Pulse Oximetry Oxygen Delivery Oxygen Flow Rate Intake/Output Intake/Output: Intake & Output 07/28/22 07/29/22 07/30/22 07/31/22 23:59 23:59 23:59 23:59 Intake Total 1350 700 Output Total 200 700 Balance 1150 0 Meds/Results Medications: Active Medications Generic Name Dose Route Start Last Admin Trade Name Freq PRN Reason Stop Dose Admin Carisoprodol 350 mg 07/30/22 18:00 07/31/22 01:05 Carisoprodol (*Crx) 350 Mg Tablet PO 350 mg Q6HR MICHELLE Administration Diazepam 5 mg 07/30/22 16:04 Diazepam (*Crx) 5 Mg Tablet PO TID PRN Anxiety Docusate Sodium 100 mg 07/30/22 21:00 07/30/22 23:00 Docusate Sodium 100 Mg Capsule PO 100 mg Q12HR MICHELLE Administration Enoxaparin Sodium 40 mg 07/30/22 22:00 07/30/22 23:00 Enoxaparin 40 Mg/0.4 Ml Syringe SUB-Q 40 mg DAILY MICHELLE Administration Gabapentin 300 mg 07/30/22 17:00 07/30/22 18:54 Gabapentin 300 Mg Capsule PO 300 mg TID MICHELLE Administration Lactated Ringer's 1,000 mls @ 125 mls/hr 07/30/22 16:05 07/31/22 06:33 Lr - Lactated Ringers Iv IV CONT Not Given .Q8H [facility] Ketorolac Tromethamine 15 mg 07/30/22 16:04 Ketorolac 15 Mg/Ml Vial (*Bkc) IV PUSH Q6H PRN Pain Rated 4-6 Loratadine 10 mg 07/31/22 09:00 Loratadine 10 Mg Tablet PO 08/30/22 08:59 DAILY [facility] Morphine Sulfate 2 mg 07/30/22 16:04 Morphine Sulfate (*Crx) 2 Mg/Ml Inj IV PUSH Q2H PRN Pain Ondansetron HCl 4 mg 07/30/22 16:04 Ondansetron Inj 4 Mg/2 Ml Vial IV PUSH Q6H PRN Nausea Oxycodone/Acetaminophen 1 - 2 tablet 07/30/22 16:04 07/31/22 04:23 Oxycodone/Acetaminophen (*Crx) 5-325 Mg Tablet PO 1 tablet Q6H PRN Administration Pain Labs Labs: Laboratory Results - last 24 hr 07/30/22
--- NOTE | 2022-07-31 07:20 | P.DS_ITS ---
DS: Admitting Diagnosis Discharge Date 07/31/2022 Admitting Diagnosis Skin laxity, localized adiposity, breast ptosis DS: Discharge Diagnosis Discharge Diagnosis (1) Skin laxity: Code(s): L57.4 - Cutis laxa senilis Status: Acute (2) Localized adiposity: Code(s): E65 - Localized adiposity Status: Acute (3) Breast ptosis: Code(s): N64.81 - Ptosis of breast Status: Acute DS: Summary Hospital Course Hospital Course: She underwent mastopexy with Galaflex, progressive tension abdominoplasty with suction lipectomy. Postoperatively has done well. Will plan for discharge home. Time Spent with Patient Time attestation: Total time spent providing and/or coordinating discharge services: Exam Narrative: A&O NOD Resp unlabored Bilateral breast healing well. No signs of infection. No hematoma. No seroma. Good color / cap refill. Abdomen / flank healing well. No signs of infection. No hematoma. No seroma. Good color / cap refill. No calf tenderness. Negative Homann's. DS: Data Data Completed and Pending Labs on day of discharge: Labs from last 24 hours 07/30/22 07:51 Cotinine Negative Discharge Plan Discharge Patient Disposition: Home, Self-Care Discharge Instructions: POST OPERATIVE DISCHARGE INSTRUCTIONS JUAN GOLDMAN M.D. [facility] [address] [place] [address] * No driving for 24 hours after anesthesia and while you are taking pain medication. * Take all prescribed medication as directed * Diet as tolerated. * No lifting or activity that raises blood pressure for 48 hours. * Regular walking / ambulation. * May shower 24 hours after surgery. Once you shower do not take pain medication before showering as the combination of medication and heat may cause you to feel dizzy or pass out. * No pools or tubs for 2 weeks. * Slowly stand up straight as tolerated. * No straining or lifting more than 20 pounds. * If no bowel movement within 24 hours may use laxative. * Call with any questions or concerns. * Dressing Care: Continue abdominal binder / foam / surgical bra 23 hours per day. If you have any questions or concerns, please call the office . If it is after hours you will be directed to the [facility]. Shortness of breath, chest pain, or other medical emergency dial 911 / proceed to the Emergency Room. Stand Alone Forms: General Discharge Instructions Follow-up/Referrals: Juan Goldman MD [Physician] - 1 Week Discharge Medications: Continued cetirizine [Zyrtec] 10 mg tablet 10 mg PO DAILY doxycycline hyclate 50 mg capsule 50 mg PO DAILY oxybutynin chloride 10 mg Tablet Extended Release 24hr 10 mg PO DAILY Adult Probiotic 3 billion cell Capsule 1 cell PO DAILY Trintellix 5 mg Tablet 20 mg PO DAILY hydrocodone-acetaminophen 5-325 mg tablet 1 tablet PO Q4H PRN (Reason: pain) Qty: 30 0RF Wellbutrin 5 mg PO HS
[2022-07-31 07:30] VITALS: BP 95/60
--- NOTE | 2022-07-31 08:41 | WPDANESPN ---
Anes - Prog Note Post-Op Date/Time: 07/31/22 08:41 Cardiovascular status: normal Respiratory status: normal Airway patency: baseline Mental status: baseline Post-Op hydration status: normal Vital Signs: Last Vital Signs Temp 98.7 F 07/31/22 07:15 Pulse 83 07/31/22 07:15 Resp 12 07/31/22 07:15 BP 93/58 L 07/31/22 07:15 Pulse Ox 96 07/31/22 07:15 O2 Del Method Room Air 07/30/22 17:05 O2 Flow Rate 8 07/30/22 16:50 Pain Score (VAS): 2 I/O: Intake & Output 07/30/22 07/31/22 07/31/22 23:59 07:59 15:59 Intake Total 300 700 Output Total 200 700 Balance 100 0 Post-procedural complaints: other (pt verbalized bothersome visual changes. denies nausea. scopalomine patch removed.) Patient Feedback: Patient satisfied with anesthetic care.
--- NOTE | 2022-07-31 09:32 | PC.NURSE ---
On 07/31/22, the student, Libia Templeton, provided care and completed [facility] documentation on this patient. I have reviewed the student's documentation and agree with the findings.
[2022-07-31] MEDS: LORATADINE 10 MG TABLET PO (09:36)
[2022-07-31] MEDS: DOCUSATE SODIUM 100 MG CAPSULE PO (09:36)
[2022-07-31] MEDS: GABAPENTIN 300 MG CAPSULE PO ×3 (09:36→17:00)
[2022-07-31] MEDS: SODIUM CHLORIDE 0.9% IV 1,000 ML 999 ML IV CONT (12:49)
== END 2022-07-31 19:10 | disposition home or self-care (01) ==
LOC: ANHSURGERY 18:52 → ANHOB2 18:52
PROVIDERS: Admitting Provider Surgery Plastic and Reconstructive Surgery; PCP Registered Nurse; Visit Provider Surgery Plastic and Reconstructive Surgery
PROC: (CPT 19316; principal; 2022-07-30 09:30)
PROC: (CPT 19316; 2022-07-30 09:30)
DX: Z41.1 Encounter for cosmetic surgery (principal); N64.82 Hypoplasia of breast; N64.81 Ptosis of breast; L57.4 Cutis laxa senilis; F32.A Depression, unspecified; F41.9 Anxiety disorder, unspecified; Z79.899 Other long term (current) drug therapy; Z87.891 Personal history of nicotine dependence
CPT/HCPCS: 19316; 15777; 15877; 15830; 15847; 80307; 99199; A9270; G0378; J0171; J0330; J0690; J1100; J1170; J1580; J1650; J1885; J2250; J2405; J2704; J3010; J7030; J7120

== ENCOUNTER 2023-02-18 11:00 | Outpatient (CLI) | payer OTHER, SELFPAY ==
--- NOTE | ~2023-02-18 | XR_ITS ---
XR abdomen/kub 1V 02/18/2023 11:42 INDICATION: Abdominal distention TECHNIQUE: KUB COMPARISON: None FINDINGS: Bowel gas pattern is normal. Moderate colonic fecal loading. There is no evidence of free a ir, mass, organomegaly, ascites or obstruction. No abnormal calculi are seen. The bones appear inta ct. There are surgical clips in the lower abdomen and pelvis. IMPRESSION: 1: No acute abdominal abnormality identified. Reviewed, dictated and finalized at location L.
[2023-02-18 11:29] LABS: Hematocrit 43.5 % (37.0-47.0); Hemoglobin 14.6 g/dL (12.0-15.0); Mean Corpuscular HGB Conc 33.6 g/dl (32-36); Mean Corpuscular Hemoglobin 28.8 pg (26-34); Mean Corpuscular Volume 85.8 fl (80-100); Mean Platelet Volume 8.5 fl (7.4-10.4); Platelet Count Result 257 k/mm3 (150-375); Red Blood Count 5.07 M/mm3 (4.2-5.4); Red Cell Distribution Width 12.7 % (11.5-14.5); White Blood Count 7.6 K/mm3 (4.5-10.0)
[2023-02-18 11:37] LABS: Alanine Aminotransferase 22 U/L (6-35); Albumin Level 4.4 g/dL (3.5-5.1); Alkaline Phosphatase 54 U/L (38-126); Anion Gap 7 mmol/L (8-16); Aspartate Amino Transferase 22 U/L (14-36); Bilirubin,Total 0.5 mg/dL (0.2-1.3); Blood Urea Nitrogen 16 mg/dL (7-17); CRP < 0.5 mg/dL (<1.0); Calcium 8.9 mg/dL (8.4-10.2); Carbon Dioxide 28 mmol/L (22-30); Chloride 105 mmol/L (98-107); Estimated Glomerular Filt Rate > 60; Glucose 96 mg/dL (65-110); Sodium 140 mmol/L (137-145)
[2023-02-18 11:58] LABS: Erythrocyte Sedimentation Rate 7 mm/hr (0-20)
[2023-02-24 07:29] LABS: Gliadin AB, IgG <1.0 U/mL (<15.0); TTG IGA AB <1.0 U/mL (<15.0)
== END 2023-02-18 11:01 | disposition home or self-care (01) ==
LOC: ANHLAB 11:01
PROVIDERS: PCP Registered Nurse; Visit Provider Nurse Practitioner
DX: R14.0 Abdominal distension (gaseous) (principal); K52.839 Microscopic colitis, unspecified; R63.5 Abnormal weight gain
CPT/HCPCS: 36415; 74018; 80053; 84443; 85027; 85652; 86140; 86255; 86364

== ENCOUNTER 2025-05-10 08:59 | Outpatient (CLI) | payer OTHER, SELFPAY ==
--- OUTSIDE RECORDS SUMMARY | 2025-05-10 09:24 | XMS_ITS | Encounter Summary ---
Author Organization [facility] Address [address] [place] [address] Care Team Providers Care Senior Clinical Sas Programmer Name Role Phone Kristin Villarreal Primary Care Provider Encounter Details Date Type Department Care Team (Late st Contact Info) Description 07/12/2022 [employer] Message Enc [facility] Family & Internal Medicine [facility] [address] [place] [address] Kristin Villarreal APNP [address] [place] [address] Question regarding TERESA SCRN W RFX/TITER/PATTERN/CA SCADE Social History Tobacco Use Types Packs/Day Years Used Date Smoking Tobacco: Former Cigarettes 1 09/29/1999 - 07/30/2020 Smokeless Tobacco: Never Comments:1/2-1 ppd Alcohol Use Standard Drinks/Week Comments Yes 1 (1 standard drink = 0.6 oz pur e alcohol) rarely AUDIT-C Answer Date Recorded Q1: How often do you have a drink containing alc ohol? Monthly or less 10/09/2020 Average Number of Drinks Not on file 021 Frequency of Binge Drinking Not on file 09/29 PHQ-2 Answer Date Recorded PHQ-2 Score - If the patient scores above 3, please move on to questions 3-9 0 07/10/2022 Comments No Sex and Gender Information Value Date Recorded Sex Assigned at Female 11/17/2023 8:42 AM MOTOR AND CONTROLS TESTER Legal Sex Female 9:11 AM MOTOR AND CONTROLS TESTER Gender Identity Female 11/17/2023 8:42 AM MOTOR AND CONTROLS TESTER Sexual Orientation Not on file COVID-19 Exposure Response Date Recorded In the last 10 days, have yo u been in contact with someone who was confirmed or suspected to have Coronavirus/COVID-19? No / Unsure 07/10/2022 8:18 AM CDT documented as of this encounter Plan of Treatment Not on file documented as of this encounter Visit Diagnoses Not on filedocumented in this encounter Additional Health Concerns Assessment Noted Time PHQ-9 Depression Total Score: 3 07/10/20 9:09 AM CDT documented as of this encounter Care Teams Senior Clinical Sas Programmer Relationship Specialty Start Date End Date Kristin Villarreal APNP [address] [place] [address] PCP - General NURSE PRACTITIONER 07/10/22 documented as of this encounter
--- OUTSIDE RECORDS SUMMARY | 2025-05-10 09:24 | XMS_ITS | Encounter Summary ---
Author Organization [facility] Address [address] [place] [address] Care Team Providers Care Associate Chief Nurse Name Role Phone Kristin Villarreal Primary Care Provider [phone] Encounter Details Date Type Department Care Team (Late st Contact Info) Description 07/16/2023 [employer] Message Enc [facility] Family and Internal Medicine - [place] [address] [address] [place] [address] [employer] Provider Screening Social History Tobacco Use Types Packs/Day Years Used Date Smoking Tobacco: Former Cigarettes 1 09/29/1999 - 07/30/2020 Smokeless Tobacco: Never Comments:09/30-1 ppd Alcohol Use Standard Drinks/Week Comments Yes 0 (1 standard drink = 0.6 oz pur e alcohol) rarely AUDIT-C Answer Date Recorded Q1: How often do you have a drink containing alc ohol? Monthly or less 10/09/2020 Average Number of Drinks Not on file 021 Frequency of Binge Drinking Not on file 09/29 PHQ-2 Answer Date Recorded Patient Health Questionnaire-2 Score 0 03/25/2023 Comments No Sex and Gender Information Value Date Recorded Sex Assigned at Female 11/17/2023 8:42 AM WELT INSOLE CHANNELER Legal Sex Female 9:11 AM WELT INSOLE CHANNELER Gender Identity Female 11/17/2023 8:42 AM WELT INSOLE CHANNELER Sexual Orientation Not on file documented as of this encounter Plan of Treatment Not on file documented as of this encounter Visit Diagnoses Not on filedocumented in this encounter Additional Health Concerns Assessment Noted Time PHQ-9 Depression Total Score: 3 07/10/20 9:09 AM CDT documented as of this encounter Care Teams Associate Chief Nurse Relationship Specialty Start Date End Date Kristin Villarreal APNP [address] [place] [id number] PCP - General NURSE PRACTITIONER 07/10/22 documented as of this encounter
--- OUTSIDE RECORDS SUMMARY | 2025-05-10 09:25 | XMS_ITS | Patient Health Record ---
Author Organization [facility] [place] Address [address] [place] [address] Care Team Providers Care Internal Sales Engineer Name Role Phone Cherelle OVALLES, Kristin Primary Care Provider Unavaila Alicia Laurent Unavailable [phone] Felicita Evans Unavailable [phone] Allergies No Known Allergies Reason For Referral No Information Medications Medication SIG (Take, Route, Frequency, Duration) Notes Start Date End Date Status Meloxicam 7.5 MG Oral 02/05/2024 Ac tive Wegovy 1.7 MG/0.75ML 0.75 mL Subcutaneous *Reorder from [facility] for eRx and Interaction Alerts* 02/05/2024 Active Fluticasone Propionate Diskus 50 MCG/ACT Inhalation [facility]* 02/05/2024 Active methylPREDNISolone 4 MG Oral 02/05/2024 Not-Taking Myrbetriq 50 MG Oral 02/05/2024 Act anabella LUBIPROSTONE 8 MCG CAPSULE *Reorder from [facility] for eRx and Interaction Alerts* 02/05/2024 Not-Taking ProAir HFA 108 (90 Base) MCG/ACT Inhalation 02/05/2024 Active Omeprazole 20 MG Oral 02/05/2024 Ac tive Xifaxan 550 MG Oral 02/05/2024 Not- Taking TAZAROTENE 0.1 % TOPICAL FOAM *Reorder from [facility] for eRx and Interaction Alerts* 02/05/2024 Not-Taking Phentermine HCl 30 mg Oral 02/05/2024 Not-Taking Linzess 145 MCG Oral 02/05/2024 Not -Taking Trulance 3 MG Oral 02/05/2024 Not-T aking buPROPion HCl ER (XL) 150 MG 1 tablet in the morning Oral Once a day; Duration: 90 days Active Fluconazole 150 MG Oral 02/05/2024 Not-Taking Trintellix 20 MG TAKE 1 TABLET BY MOUTH DAILY; Duration: 90 Active Amoxicillin-Pot Clavulanate 875-125 MG Oral 02/05/2024 Not-T aking oxyBUTYnin Chloride ER 10 MG Oral 02/05/2024 Active Wellbutrin XL 150 MG Oral 02/05/2024 Not-Taking Doxycycline Hyclate 100 MG Oral 02/05/2024 Not-Taking ID Now COVID-19 In Vitro *Reorder from [facility] for eRx and Interaction Alerts* 02/05/2024 Not-Taking Uro-MP 118-10-40.8-36 mg Oral *Pick strength-form from [facility]ient for eRX* 02/05/2024 Active metroNIDAZOLE 500 MG Oral 02/05/2024 Not-Taking Restasis 0.05 % Ophthalmic 02/05/2024 Ac tive Doxycycline Hyclate 50 mg ORAL 02/05/2024 Not-Taking Immunizations Vaccine Route Administration Date Status Comme nts Moderna Covid-19 Vaccine 1st dose Unknown 10/31/2020 Ad ministered Moderna Covid-19 Vaccine 1st dose Unknown 11/28/2020 Ad ministered Moderna Covid-19 Vaccine 1st dose Unknown 08/29/2021 Ad ministered Social History Tobacco Use: Social History Observation Description Date Details (start date - stop date) Former Smoker NA - 07/30/2020 Sex Assigned At : Social History Observation Description Sex Assigned At Female Tobacco Control (Standard) Question Answer Notes Tobacco use: Former smoker When did you stop smoking? 07/30/2020 How long has it been since you last smoked? 1-5 years AUDIT-C (Standard) Question Answer Notes Did you have a drink contain ing alcohol in the past year? Yes How often did you have six o r more drinks on one occasion in the past year? Never (0 point) How many drinks did you have on a typical day when you were drinking in the past year? 1 or 2 drinks (0 point) How often did you have a dri nk containing alcohol in the past year? Monthly or less (1 point) Problems Problem Type SNOMED Code ICD Code Onset Dates Problem Status W/U Status Risk Notes Problem Generalized anxiety disorder (70148810) Generalized anxiety disorder (F41.1) 02/05/20 24 Active confirmed Problem Post-traumatic stress disorder, unspecified (F43.10) 02/05/20 24 Active confirmed Problem Attention deficit hyperactivity disorder, predominantly inattentive type (disorder) (69253962) Attention and concentration deficit (R41.840) 02/05/20 24 Active confirmed Vital Signs Heart Rate 62 /min 10/29/2024 Height-cm 167.64 cm 10/29/2024 Blood pressure diastolic 77 mm Hg 10/29/2024 Weight-kg 68.49 kg 10/29/2024 Height 66.00 in 10/29/2024 Blood pressure systolic 113 mm Hg 10/29/2024 Weight 151 lbs 10/29/2024 BMI 24.37 kg/m2 10/29/2024 Encounters Encounter Location Date Provider Diagnosis [facility] [place] [address] [facility] [address] [place] [address] 06/07/2024 Felicita Evans [facility] [place] [address] [address] 10/29/2024 Alicia Maciel Generalized anxiety disorder F41.1 ; Post-traumatic stress disorder, unspecified F43.10 and Attention and concentration deficit R41.840 [facility] [place] [address] [address] 02/18/2025 Alicia Maciel Assessments Encounter Date Diagnosis (ICD Code) Assessment Notes Treatment Notes Treatment Clinical Notes Section Notes 10/29/2024 Generalized anxiety disorder (ICD-10 - F41.1) Anxiety/PTSD - Reports stable symptoms Plan: - Continue Trintellix 20 mg daily - Continue bupropion XL 150 mg daily Follow up 3 months, sooner if concerns arise 10/29/2024 Post-traumatic stress disorder, unspecified (ICD-10 - F43.10) Anxiety/PTSD - Reports stable symptoms Plan: - Continue Trintellix 20 mg daily - Continue bupropion XL 150 mg daily Follow up 3 months, sooner if concerns arise 10/29/2024 Attention and concentration deficit (ICD-10 - R41.840) Anxiety/PTSD - Reports stable symptoms Plan: - Continue Trintellix 20 mg daily - Continue bupropion XL 150 mg daily Follow up 3 months, sooner if concerns arise Plan Of Treatment Next Appt Details Provider Name:Alicia dumas, 06/24/2025 09:45:00 AM, [address], [facility] [address], [place], [address], Insurance Providers Payer Name Payer Address Payer Phone Subscriber Number Group Number Insured Name Patient Relationship to Insured Coverage Start Date Coverage End Date [facility] [address] [place] [phone] [id number] KINZA JOHNSON Self - patient is the insured Medical (General) History Medical History History ICD Code Problems: Disturbance of attention Generalized anxiety disorder Posttraumatic stress disorder Past Psychiatric History: Anxiety Disord er,PTSD E78.5 Hyperlipidemia Surgical History Surgery Date(Month/Year) Endometrial ablation (64322) 10/13/2014 Hysterectomy (62799) 10/23/2015 Any surgical history 06/22/2021 Breast surgery (16302) 07/30/2022 Cosmetic surgery 07/30/2022 Fixation of pendulous breast (07453291) 07/30/2022 Abdominoplasty ([id number]) 07/30/2022
--- OUTSIDE RECORDS SUMMARY | 2025-05-10 09:25 | XMS_ITS | Encounter Summary ---
Author Organization [facility] Address [address] [place] [address] Care Team Providers Care Cold Type Composing Machine Operator Name Role Phone Rogers Rdz DO Primary Care Provider [phone] Unknown, Notinfile Primary Care Provider Unavail able Encounter Details Date Type Department Care Team (Late st Contact Info) Description 11/24/2020 Telephone [facility] [address] [place] [address] Taylor Murdock RDCS Social History Tobacco Use Types Packs/Day Years Used Date Smoking Tobacco: Former Cigarettes Q uit: 07/30/2020 Comments Unknown Sex and Gender Information Value Date Recorded Sex Assigned at Not on file Legal Sex Female 5:35 AM STUD DRIVER Gender Identity Female 02/12/2022 4:24 PM CDT Sexual Orientation Straight 12/05/2020 12 :31 PM STUD DRIVER documented as of this encounter Plan of Treatment Not on file documented as of this encounter Visit Diagnoses Not on filedocumented in this encounter Care Teams Cold Type Composing Machine Operator Relationship Specialty Start Date End Date Rogers Rdz DO PCP - General Family Medicine 11/08/20 05/12/23 Unknown, Vicenta PCP - General 05/13/23 documented as of this encounter
--- OUTSIDE RECORDS SUMMARY | 2025-05-10 09:25 | XMS_ITS | Clinical Summary ---
Author Organization [facility] [address] [place] [address] Care Team Providers Care Wood Cutter Name Role Phone Unknown, Notinfile Primary Care Provider Unavail able Allergies No known active allergies Medications ALPRAZolam (XANAX) 0.25 mg tablet TK 1 T PO Q 12 H PRN 0 Active azelaic acid 15 % gel APPLY TO FACE EVERY MORNING 1 Active doxycycline hyclate (VIBRAMYCIN) 50 mg capsule Take 1 capsule (50 mg total) by mouth daily 1 Active oxybutynin XL (DITROPAN-XL) 10 mg 24 hr tablet Take 10 mg by mouth daily 1 Active tretinoin (RETIN-A) 0.025 % cream APPLY TO FACE EVERY NIGHT AT BEDTIME 1 Active Trintellix 10 mg tablet Take 10 mg by mouth daily 1 Active albuterol HFA (PROVENTIL HFA,VENTOLIN HFA,PROAIR HFA) 90 mcg/actuation inhaler Inhale 2 puffs every 6 (six) hours as needed 1 Active omeprazole (PriLOSEC) 20 mg capsule Take 1 capsule (20 mg total) by mouth daily Active NUTRITIONAL SUPPLEMENTS ORAL Take by mouth Probiotics, calcium/magnes ium/vitmain C, Felicia-X, and digestive enzymes. Active tazarotene 0.1 % foam 1 Active polyethylene glycol (MIRALAX) 17 gram/dose powder TAKE 17 GRAMS BY MOUTH TWICE DAILY 1 Active dapsone 7.5 % gel with pump 1 Active cetirizine (ZyrTEC) 10 mg tablet Take 1 tablet (10 mg total) by mouth daily Active Active Problems Problem Noted Date Diagnosed Date Fatigue 10/26/2021 Assessment & Plan (10/26/2021 12:50 PM VENUE COORDINATOR): Discussed importance of balancing activity with rest. Working night shifts currently - makes things more difficult. Referral placed to OT for energy conservation techniques. Brain fog 10/26/2021 Assessment & Plan (10/26/2021 12:50 PM VENUE COORDINATOR): Trial thiamine 100 mg daily. Referral to OT placed today. Work on avoiding overexertion -- physically and mentally. Paradoxical vocal fold motion disorder Assessment & Plan (08/02/2021 1:50 PM CDT): I have recommended laryngeal control therapy here at the [facility] in order to control the patient's symptoms. The patient's diagnosis was discussed in detail along with how therapy can improve it. Altered bowel habits 03/01/2021 Abdominal bloating 02/21/2021 Sinus bradycardia 02/21/2021 Chest pain Dyspnea on minimal exertion History of 2019 novel coronavirus disease (COVID -19) Immunizations Immunization Administration Dates Next Due DTaP / IPV 12/30/1980, 0,1979,09/11 DTaP, Unspecified 04/13/1984, 1,1979,10/09,1979 Influenza, Quadrivalent, Spl it, Preservative Free, Intramuscular 07/06/2020 MMRV 05/14/1995,09/30/1980 Moderna SARS-CoV-2 Monovalen t Vaccination (12+ YRS) 11/28/2020,10/31/2020 OPV 04/13/1984 Td, Unspecified 05/14/1993 Tdap 04/27/2016 Surgical History Surgery Date Site/Laterality Comments TUBAL LIGATION HYSTERECTOMY LAPAROSCOPY Medical History Medical History Date Comments Covid-19 06/2020 Collagenous colitis 2019 Anxiety Urinary urgency Acne GERD (gastroesophageal reflux disease) Colitis Family History Medical History Relation Name Comments Dravet syndrome Daughter No Known Problems Father Anxiety disorder Mother Diabetes Mother Crohn's disease Son Relation Name Status Comments Daughter Father Mother Son Social History Tobacco Use Types Packs/Day Years Used Date Smoking Tobacco: Former Cigarettes Q uit: 07/30/2020 Tobacco Cessation:Counseling Given: Not Answered AUDIT-C Answer Date Recorded Q1: How often do you have a drink containing alc ohol? Monthly or less 03/01/2021 Average Number of Drinks Not on file 021 Frequency of Binge Drinking Not on file 11/2020 PHQ-2 Answer Date Recorded PHQ-2 Total Score (If total score is 3 or more points, staff should administer the PHQ-9) 0 05/29/2021 Personal Safety Answer Date Recorded Getting School Help Needed Not on file 09/09 Comments No Sex and Gender Information Value Date Recorded Sex Assigned at Not on file Legal Sex Female 5:35 AM VENUE COORDINATOR Gender Identity Female 02/12/2022 4:24 PM CDT Sexual Orientation Straight 12/05/2020 12 :31 PM VENUE COORDINATOR Obstetrics History Last Filed Vital Signs Vital Sign Reading Time Taken Comments Blood Pressure 119/77 08/02/2021 1:05 PM CDT Pulse 50 08/02/2021 1:05 PM CDT Temperature 36.8 C (98.3 F) 05/29/2021 10:05 AM CDT Respiratory Rate - - Oxygen Saturation 98% 05/29/2021 10:05 AM CDT Inhaled Oxygen Concentration - - Weight 75.3 kg (166 lb) 08/02/2021 1:05 PM CDT Height 167.6 cm (5' 6) 08/02/2021 1:05 PM CDT Body Mass Index 26.79 08/02/2021 1:05 PM CDT Plan of Treatment Health Maintenance Due Date Last Done Comments Breast Cancer Screening-Mammogram 1979 Colon Cancer Screening-Colonoscopy 1979 Hepatitis C Screening 1979 Hepatitis B Screening 1997 Regular Well Visit/Exam 18-64 1997 HPV Vaccines (1 - 3-dose SCDM series) 2006 Depression Screening 05/29/2022 05/29/2021 Covid-19 Vaccine ( season) 2024 11/28/2020, 10/31/2020 Influenza Vaccine (#1) 2025 06/19/2022, 2019 DTaP/Tdap/Td Vaccine (7 - Td or Tdap) 04/27/2026 04/27/2016, 05/14/1993, 04/13/1984, Additional history exists Pneumococcal vaccine <65 Aged Out No longer eligible based on patient's age to complete this topic Insurance [facility] Address: [place] [address] [facility] Address: [address] [address] [place] [address] [facility]O Address: [facility] [address] [phone] Care Teams Wood Cutter Relationship Specialty Start Date End Date Unknown, Notinfile PCP - General 05/13/23
--- OUTSIDE RECORDS SUMMARY | 2025-05-10 09:25 | XMS_ITS | Continuity of Care Document ---
Author Organization [facility] Address [address] [place] [address] Care Team Providers Care Licensed Esthetician Name Role Phone Kristin Villarreal Primary Care Provider Encounters Date Type Department Care Team Description 04/27/2025 Travel 04/27/2025 9:20 AM CDT Office Visit [facility] Internal [address] [phone] Kristin Villarreal, APNP Weight Check; GERD (Pt doesn't feel the omeprazole 40 mg daily is helping as much as it should.) 12/30/[address] [phone] Kristin Villarreal APNP Lab Results 12/23/[address] [phone] Kristin Villarreal APNP Lab Results 12/15/2024 Travel 12/15/2024 1:40 PM CDT Office Visit [address] [phone] Kristin Villarreal APNP Weight Check; Lab Order (Pt would like orders for her routine labwork.) 12/01/2024 Scan [facility] INFO SRVCS Scanned, Doc [facility] 10/11/2024 Telephone [facility] Internal [address] [place] [address] Kristin Villarreal APNP Prior Authorization (Wegovy 1.7mg ) 10/11/2024 MyChart Message Enc [address] [phone]'s note 10/08/2024 8:40 AM ESCROW PROCESSOR Telemedicine [address] [phone] Jessica Singleton FNP Congestion (For at least 1 day, daughter tested + for Inf. A, covid/Inf test neg.); Cough 10/07/2024 MyChart Message Enc [address] [phone] Kristin Villarreal APNP Cough 08/31/2024 MyChart Message Enc [address] [phone] Kristin Villarreal APNP Wegovy Script 08/25/2024 Travel 08/25/2024 8:40 AM ESCROW PROCESSOR Office Visit [address] [phone] Kristin Villarreal APNP Follow Up (Efren follow up.) 07/12/2024 MyChart Message Enc [address] [phone] Kristin Villarreal APNP Wegovy 07/05/[address] [address] Kristin Villarreal APNP Prior Authorization (Wegovy 1mg/0.5mg) 07/01/2024 MyChart Message Enc [facility] Internal [address] [place] [address] Kristin Villarreal APNP Wegovlars prior authorization 06/23/[address] [phone] Kristin Villarreal APNP Prior Authorization (Wegovy 1mg, ) 06/23/2024 MyChart Message Enc [address] [phone] Kristin Villarreal APNP Covid positive 05/28/2024 Travel 05/28/2024 10:20 AM CDT Office Visit [address] [phone] Kristin Villarreal APNP Weight Check; Ear Problem (Right ear itching) 04/29/2024 [employer] Message Enc [address] [address] Kristin Villarreal APNP Wegovy 04/06/2024 Travel 04/06/2024 11:00 AM CDT Office Visit [address] [phone] Kristin Villarreal APNP Weight Check (Follow-up on Wegovy) 02/27/2024 Travel 02/27/2024 8:00 AM CDT Office Visit [address] [phone] Kristin Villarreal APNP Follow Up; Medication (Med review:Wegovy ) 02/10/[address] [phone] Kristin Villarreal APNP Prior Authorization (Wegovy 0.25mg ) 02/10/2024 Travel 02/10/2024 9:00 AM CDT Office Visit [address] [phone] Kristin Villarreal APNP Sleep Apnea (CPAP follow-up. Pt states she hasn't been using it d/t coughing at night.); Weight Problem (Phentermine didn't work.) 12/09/2023 Travel 12/09/2023 1:00 PM CDT Office Visit [address] [phone] Jessica Singleton FNP Congestion (C/o sinus congestion x 2 weeks); Sore Throat (Worse today) 12/08/[address] [phone] Jessica Singleton FNP Problem (Sinus/congestion) 11/19/2023 Scan [facility] INFO SRVCS Scanned, Doc [facility] 11/19/2023 Travel 11/19/2023 10:20 AM ESCROW PROCESSOR Office Visit [address] [phone] Kristin Villarreal APNP Sleep Study (Follow-up on sleep study results.) 11/14/[address] [phone] Kristin Villarreal APNP Sleep Study; Appointment Request 09/26/2023 Scan [facility] INFO SRVCS Scanned, Doc [facility] 09/19/2023 Scan [facility] INFO SRVCS Scanned, Doc Med Group 09/19/[address] [phone] Kristin Villarreal APNP Information 09/17/[address] [phone] Kristin Villarreal APNP Lab Results 09/12/2023 Orders Only [facility] Internal [address] [phone] Kristin Villarreal, YESSENIA 09/10/2023 Travel 09/10/2023 10:20 AM ESCROW PROCESSOR Office Visit [address] [phone] Kristin Villarreal APNP Snoring/sleep Apnea 07/16/2023 MyChart Message Enc [facility] [address] [place] [address] Tomas Cooper [facility] Provider Screening 07/08/2023 Scan [facility] INFO SRVCS Scanned, Doc Med [facility] 03/27/2023 Scan [facility] INFO SRVCS Scanned, Doc [facility] 03/25/2023 Travel 03/25/2023 3:00 PM CDT Office Visit [address] [phone] Kristin Villarreal, YESSENIA Physical 02/18/2023 Scan [facility] INFO SRVCS Scanned, Doc [facility] Lab (SCAN) 07/30/2022 Scan [facility] INFO SRVCS Scanned, Doc [facility] Procedure (SCAN); Lab (SCAN) 07/26/2022 Scan [facility] INFO SRVCS Scanned, Doc Med [facility] Lab (SCAN) 07/16/2022 Telephone [place] [address], [address] [place] [address] Sanjay Rdz, DO Results 07/12/2022 MyChart Message Enc [address] [phone] Kristin Villarreal APNP Question regarding TERESA SCRN W RFX/TITER/PATTERN/C ASCADE 07/10/2022 Travel 07/10/2022 8:20 AM CDT Office Visit [address] [place] [address] Kristin Villarreal APNP Physical 04/19/2022 [facility] [address], [address] [place] [phone] Sanjay Rdz, DO Follow visit 03/28/2022 Travel 03/28/2022 11:00 AM CDT [facility] [address], [address] [place] [phone] Sanjay Rdz, DO Radiology Results; Lab Results 03/19/2022 Travel 03/19/2022 2:25 PM CDT - 03/19/2022 2:32 PM CDT Hospital Encounter [facility] [address] Sanjay Rdz, DO Discharge Disposition: Home or Self Care (Routine Discharge) 03/19/2022 2:33 PM CDT - 03/19/2022 11:59 PM CDT Hospital Encounter [facility] [place] [address] Sanjay Rdz, DO Discharge Disposition: Home or Self Care (Routine Discharge) 03/14/2022 Travel 03/14/2022 4:00 PM CDT [facility] [address], [address] [place] [phone] Sanjay Rdz, Body Aches; Joint Pain; Back Pain; Neck Pain; Medication 03/13/2022 Travel 12/26/2021 Orders Only [facility] [address], [address] [place] [phone] Regulo Osullivan MD 12/25/2021 Telephone [facility] [address], [address] [place] [address] Sanjay Rdz, Cough 12/25/2021 Travel 12/25/2021 10:00 AM CDT Office Visit [facility] [place] [address], [address] [place] [address] Regulo Osullivan MD URI/ENT Symptoms (congestion, sore throat, ear pain, sinus pain and pressure ) 10/26/2021 Scan [facility] INFO SRVCS Scanned, Documents 05/29/2021 Scan [facility] INFO SRVCS Scanned, Documents 05/18/2021 Scan [facility] INFO SRVCS Scanned, Documents 05/04/2021 Scan [facility] INFO SRVCS Scanned, Documents Lab (SCAN) 03/01/2021 Scan [facility] INFO SRVCS Scanned, Documents 02/13/2021 Therapy Plan [facility] [place] [address] Grace Pederson, PT 01/24/2021 Therapy Plan [facility] [place] [address] Grace Pederson, PT 01/15/2021 Travel 01/15/2021 8:00 AM CDT - 01/15/2021 11:59 PM CDT Hospital Encounter [facility] [place] [address] Sanjay Rdz, Grace Dempsey, PT Discharge Disposition: Home or Self Care (Routine Discharge) 01/08/[address] [facility] [place] [address] Grace Pederson, PT 01/08/2021 Travel 12/20/2020 Travel 12/20/2020 12:45 PM CDT - 12/20/2020 11:59 PM CDT Hospital Encounter [facility] [place] [address] Sanjay Rdz, Grace Dempsey, PT Discharge Disposition: Home or Self Care (Routine Discharge) 12/15/2020 Telephone [facility] [place] [address] Grace Pederson, PT Appointment Reminder 12/06/2020 Travel 12/06/2020 12:45 PM ESCROW PROCESSOR - 12/06/2020 11:59 PM ESCROW PROCESSOR Hospital Encounter [facility] [place] [place] [address] Sanjay Rdz, Grace Dempsey, PT Discharge Disposition: Home or Self Care (Routine Discharge) 11/22/2020 Telephone [facility] [address], [address] [place] [address] Sanjay Rdz, DO Refill Request 11/17/2020 Travel 11/17/2020 9:55 AM ESCROW PROCESSOR - 11/17/2020 11:59 PM ESCROW PROCESSOR Hospital Encounter [facility] [place] [place] [address] Sanjay Rdz, Grace Dempsey, PT Discharge Disposition: Home or Self Care (Routine Discharge) 11/09/2020 Telephone [facility] [address], [address] [place] [address] Sanjay Rdz, DO Referral 11/08/2020 Telephone [facility] [address] [place] [address] Christian Burkett, Referral 11/08/2020 Telephone [facility] [address], [address] [place] [address] Sanjay Rdz, DO Problem 10/23/2020 Travel 10/23/2020 8:20 AM ESCROW PROCESSOR Office Visit [facility] [address] [address], [address] [place] [address] Sanjay Rdz, DO Follow Up 10/16/2020 Orders Only [facility] [address], [address] [place] [phone] Sanjay Rdz, DO 10/09/2020 Travel 10/09/2020 9:00 AM ESCROW PROCESSOR Office Visit [facility] [address], [address] [place] [phone] Sanjay Rdz, DO Physical 10/02/2020 Telephone [facility] [address], [address] [place] [phone] Sanjay Rdz, DO Pre-visit [facility] Allergies No known active allergies Medications probiotic Cap capsule Take 1 capsule by mouth daily. Active fexofenadine (KENDRICK) 180 MG tablet Take 1 tablet (180 mg total) by mouth daily. Active TRINTELLIX 20 MG tablet daily. 07/02/20 22 Active buPROPion XL (WELLBUTRIN XL) 150 MG 24 hr tablet Not taking yet. 07/09/20 22 Active albuterol sulfate HFA 108 (90 Base) MCG/ACT inhalerIndication s:Wheezing Inhale 2 puffs into the lungs every 6 (six) hours as needed for Wheezing or Shortness of breath. 18 g 3 09/10/20 23 Active Meth-Hyo-M Bl-Na Phos-Ph Reinier (URO-MP) 118 MG Cap 02/09/20 24 Active cycloSPORINE (RESTASIS) 0.05 % ophthalmic emulsion Apply 1 drop to eye every 12 (twelve) hours. 02/05/20 24 Active meloxicam (MOBIC) 7.5 MG tabletIndications :DDD (degenerative disc disease), cervical,Degenera tion of intervertebral disc of lumbar region with discogenic back pain Take 1 tablet (7.5 mg total) by mouth daily. 90 tablet 3 04/27/20 25 Active oxybutynin (DITROPAN) 5 MG tablet Take 2 tablets (10 mg total) by mouth daily. 04/10/20 25 Active semaglutide-weigh t management (WEGOVY) 1.7 mg/dose injection (PEN)Indications: Weight Loss Inject 1.7 mg into the skin once a week. Indications: Weight Loss 2 mL 5 04/27/20 25 Active pantoprazole EC (PROTONIX) 40 MG tabletIndications :Gastroesophageal reflux disease without esophagitis Take 1 tablet (40 mg total) by mouth daily. 90 tablet 1 04/27/20 25 Active oxybutynin XL 10 MG 24 hr tablet Take 1 tablet (10 mg total) by mouth daily. 09/13/20 20 2024 Discontinued omeprazole (PRILOSEC) 40 MG capsuleIndication s:Chronic cough,GERD (gastroesophageal reflux disease) Take 1 capsule (40 mg total) by mouth daily. 90 capsule 3 06/23/20 24 2024 Discontinued(F ormulary change) meloxicam (MOBIC) 7.5 MG tabletIndications :DDD (degenerative disc disease), cervical,DDD (degenerative disc disease), lumbar TAKE 1 TABLET(7.5 MG) BY MOUTH DAILY 90 tablet 11/02/19 25 2024 Discontinued(R eorder) semaglutide-weigh t management (WEGOVY) 1 mg/dose injection (PEN)Indications: Weight Loss Inject 1 mg into the skin once a week. Indications: Weight Loss 2 mL 5 12/16/19 25 2024 Discontinued(D ose adjustment) Active Problems Problem Noted Date Diagnosed Date Joint pain 12/28/2021 Tension headache, chronic 10/09/2020 Overactive bladder 10/09/2020 Mixed stress and urge incontinence 10/09/2020 Interstitial cystitis 03/24/2002 Microscopic colitis Adjustment disorder with anxious mood Hyperlipidemia Resolved Problems Problem Noted Date Diagnosed Date Resolved Date Impacted cerumen of right ear 12/25/2021 07/10/2022 Immunizations Immunization Administration Dates Next Due Dtap (Generic) 04/13/1984, 1,1979,1979,1979 FLUCELVAX (ccIIV3, TRIVALENT, 0.5mL) 06/03/2024 Fluzone 6 Months+ Quad (0.5 mL Prefilled Syringe) 07/06/2020 Influenza Adult (Generic) 06/21/2023,06/19/2022, 07/06/2020 MMR (Generic) 05/14/1995,09/30/1980 MODERNA COVID-19 (12+) MRNA, LNP-S, PF, 100 MCG/ 0.5 ML DOSE 11/28/2020 Polio Ipv (Generic) 12/30/1980, 0,1979,1978 Polio Opv (Generic) 04/13/1984 Td (Generic) 05/14/1993 Td, Adsorbed, Preservative F ree, Adult Use, Lf Unspecified 05/14/1993 Tdap (Generic) 04/27/2016 Family History Medical History Relation Comments Intellectual Disability Daughter Diabetes Father Hypertrophic cardiomyopathy Father Vasculitis Father Hypertrophic cardiomyopathy Maternal Aunt Diabetes Mother Hypertension Mother Asthma Son Relation Status Comments Daughter Father Maternal Aunt Mother Son Social History Smoking Status as of 05/10/2025 Tobacco Use Types Packs/Day Years Used Date Smoking Tobacco: Never Assessed AUDIT-C Answer Date Recorded Q1: How often do you have a drink containing alc ohol? Monthly or less 10/09/2020 Average Number of Drinks Not on file 021 Frequency of Binge Drinking Not on file 09/29 PHQ-2 Answer Date Recorded Patient Health Questionnaire-2 Score 0 12/15/2024 Sex and Gender Information Value Date Recorded Sex Assigned at Female 11/17/2023 8:42 AM ESCROW PROCESSOR Legal Sex Female 9:11 AM ESCROW PROCESSOR Gender Identity Female 11/17/2023 8:42 AM ESCROW PROCESSOR Sexual Orientation Not on file Last Filed Vital Signs Vital Sign Reading Time Taken Comments Blood Pressure 102/64 04/27/2025 9:37 AM CDT Pulse 62 04/27/2025 9:37 AM CDT Temperature 36.2 C (97.2 F) 04/27/2025 9:37 AM CDT Respiratory Rate 16 04/27/2025 9:37 AM CDT Oxygen Saturation 98% 04/27/2025 9:37 AM CDT Inhaled Oxygen Concentration - - Weight 70.5 kg (155 lb 8 oz) 04/27/2025 9:37 AM CDT Height 165.1 cm (5' 5) 04/27/2025 9:37 AM CDT Body Mass Index 25.88 04/27/2025 9:37 AM CDT Plan of Treatment Not on file Procedures Procedure Name Priority Date/Time Associated Diagnosis Comments IRON SAT PANEL (IRON,IBC,%SAT) Routine 12/21/2024 7:23 AM CDT Other fatigue VITAMIN B-12 Routine 12/21/2024 7:22 AM CDT Overweight (BMI 25.0-29.9) Other fatigue LIPID PANEL Routine 12/21/2024 7:20 AM CDT Screening for lipid disorders TSH W/REFLEX Routine 12/21/2024 7:16 AM CDT Overweight (BMI 25.0-29.9) Other fatigue COMPREHENSIVE METABOLIC PANEL Routine 12/21/2024 7:16 AM CDT Overweight (BMI 25.0-29.9) Other fatigue CBC W/DIFF AUTOMATED Routine 12/21/2024 7:16 AM CDT Overweight (BMI 25.0-29.9) Other fatigue HEMOGLOBIN, GLYCOSYLATED Routine 09/12/2023 9:27 AM ESCROW PROCESSOR LIPID PANEL Routine 09/12/2023 9:27 AM ESCROW PROCESSOR OUTSIDE LAB (SCAN ORDER) 02/18/2023 OUTSIDE LAB (SCAN ORDER) 02/18/2023 OUTSIDE LAB (SCAN ORDER) 02/18/2023 OUTSIDE LAB (SCAN ORDER) 07/30/2022 PROCEDURE GENERIC (SCAN ORDER) 07/30/2022 OUTSIDE LAB (SCAN ORDER) 07/26/2022 COLLECTION VENOUS BLOOD VENIPUNCTURE Routine 07/10/2022 9:17 AM CDT Arthralgia, unspecified joint ANTINUCLEAR ANTIBODY WI RFX 07/10/2022 9:10 AM CDT TERESA IFA SCREEN WI RFX TO TITER/CASCADE Routine 07/10/2022 9:10 AM CDT Arthralgia, unspecified joint XR LUMB SPINE 3V Routine 03/19/2022 3:17 PM CDT Polyarthralgia XR CERV SPINE 3V Routine 03/19/2022 3:17 PM CDT Polyarthralgia CBC W/DIFF AUTOMATED Routine 03/19/2022 2:39 PM CDT Polyarthralgia COMPREHENSIVE METABOLIC PANEL Routine 03/19/2022 2:39 PM CDT Polyarthralgia TSH W/REFLEX Routine 03/19/2022 2:39 PM CDT Polyarthralgia RHEUMATOID FACTOR, QUANT Routine 03/19/2022 2:39 PM CDT Polyarthralgia C-REACTIVE PROTEIN Routine 03/19/2022 2: 39 PM CDT Polyarthralgia SED RATE, ERYTHROCYTE (ESR) Routine 03/19/2022 2:39 PM CDT Polyarthralgia EAR CERUMEN REMOVAL Routine 12/25/2021 1 1:13 AM CDT Impacted cerumen of right ear OUTSIDE LAB (SCAN ORDER) 05/04/2021 TEST AUTHORIZATION 10/16/2020 1: 07 PM ESCROW PROCESSOR LIPID PANEL 10/16/2020 1:07 PM ESCROW PROCESSOR COMPREHENSIVE METABOLIC PANEL 10/16/2020 1:07 PM ESCROW PROCESSOR Results * IRON SAT PANEL (IRON,IBC,%SAT) (12/21/2024 7:23 AM CDT) IRON 68 40 - 190 mcg/dL [facility] IRON BINDING CAPACITY 264 250 - 450 mcg/dL (calc) [facility] DIAGNOSTICS [facility] % IRON SATURATION 26 16 - 45 % (calc) [facility] 12/21/2024 7:23 AM CDT 12/21/2024 7:24 AM CDT Narrative [employer] - [place] - 12/22/2024 5:07 AM CDT FASTING:YES FASTING: YES Resulting Agency Comment Performing Organization Information: Site ID: [id number] Name: [facility] Address: [address] [place] [phone] Director: Aissatou Van MD Kristin [facility] Final Resul t Performing Organization Address City/[facility] Co de Phone Number [employer] [facility] [place] [address] [address], [place] * (ABNORMAL) VITAMIN B-12 (12/21/2024 7:22 AM CDT) VITAMIN B12 S/P/B 1,433(H) 200 - 1,100 pg/mL [facility] 12/21/2024 7:22 AM CDT 12/21/2024 7:22 AM CDT Narrative [facility] [employer] - [place] - 12/22/2024 4:10 AM CDT FASTING:YES FASTING: YES Resulting Agency Comment Performing Organization Information: Site ID: [id number] Name: [facility] Address: [address] [place] [phone] Director: Aissatou Van MD Kristin [facility] Final Resul t Performing Organization Address City/[facility]/ZIP Co de Phone Number [facility] [place] [address] [address], [place] * (ABNORMAL) LIPID PANEL (12/21/2024 7:20 AM CDT) Only the most recent of3 resultswithin the time period is included. [facility] CHOLESTEROL 195 <200 mg/dL [place] HDL 55 > OR = 50 mg/dL [place] TRIGLYCERIDES 71 <150 mg/dL [place] LDL (CALCULATED) 123(H) mg/dL (calc) [place] Comment: Reference range: <100 Desirable range <100 mg/dL for primary prevention; <70 mg/dL for patients with CHD or diabetic patients with > or = 2 CHD risk factors. LDL-C is now calculated using the Yoly calculation, which is a validated novel method providing better accuracy than the Friedewald equation in the estimation of LDL-C. Martir SS et al. RICCI. 2013;310(19): 2131-8692 (http://education.[employer]/faq/CLM275) CHOL/HDL RATIO 3.5 <5.0 (calc) [place] NON HDL CHOLESTEROL 140(H) <130 mg/dL (calc) [place] Comment: For patients with diabetes plus 1 major ASCVD risk factor, treating to a non-HDL-C goal of <100 mg/dL (LDL-C of <70 mg/dL) is considered a therapeutic option. 12/21/2024 7:20 AM CDT 12/21/2024 7:21 AM CDT Narrative [facility] [employer] - [place] - 12/21/2024 3:51 PM CDT FASTING:YES FASTING: YES Resulting Agency Comment Performing Organization Information: Site ID: [id number] Name: [facility] Address: [address] [place] [address] [place] [address] Director: Aissatou Van Kristin [facility] Final Resul t [facility] - [place] [address] [address], * TSH W/REFLEX (12/21/2024 7:16 AM CDT) Only the most recent of2 resultswithin the time period is included. [facility] TSH 2.05 mIU/L [place] Comment: Reference Range > or = 20 Years 0.40-4.50 Ranges First trimester 0.26-2.66 Second trimester 0.55-2.73 Third trimester 0.43-2.91 12/21/2024 7:16 AM CDT 12/21/2024 7:18 AM CDT Narrative [facility] - [place] - 12/21/2024 4:51 PM CDT FASTING:YES FASTING: YES Resulting Agency Comment Performing Organization Information: Site ID: [id number] Name: [facility] Address: [facility] [place] [address] Director: Aissatou Van us Kristin [facility] Final Resul t [facility] - [place] [address] [address], * (ABNORMAL) COMPREHENSIVE METABOLIC PANEL (12/21/2024 7:16 AM CDT) Only the most recent of3 resultswithin the time period is included. [facility] GLUCOSE 88 65 - 99 mg/dL [place] Comment: Fasting reference interval BUN 12 7 - 25 mg/dL [place] CREATININE S/P/B 0.86 0.50 - 0.99 mg/dL [place] GFR ESTIMATE 85 > OR = 60 mL/min/1. 73m2 [place] BUN CREATININE RATIO SEE NOTE: 6 - 22 (calc) [place] Comment: Not Reported: BUN and Creatinine are within reference range. SODIUM S/P/B 140 135 - 146 mmol/L [place] POTASSIUM S/P/B 3.7 3.5 - 5.3 mmol/L [place] CHLORIDE S/P/B 106 98 - 110 mmol/L [place] CO2 28 20 - 32 mmol/L [place] CALCIUM S/P/B 8.5(L) 8.6 - 10.2 mg/dL [facility] [place] TOTAL PROTEIN S/P/B 5.9(L) 6.1 - 8.1 g/dL [place] ALBUMIN S/P/B 4.0 3.6 - 5.1 g/dL [place] GLOBULIN 1.9 1.9 - 3.7 g/dL (calc) [place] ALBUMIN/GLOBULIN RATIO 2.1 1.0 - 2.5 (calc) [place] BILIRUBIN TOTAL S/P/B 0.4 0.2 - 1.2 mg/dL [place] ALKALINE PHOSPHATASE S/P/B 42 31 - 125 U/L [place] AST 12 10 - 35 U/L [place] ALT 12 6 - 29 U/L [place] 12/21/2024 7:16 AM CDT 12/21/2024 7:18 AM CDT Narrative [facility] [employer] - [place] - 12/21/2024 4:51 PM CDT FASTING:YES FASTING: YES Resulting Agency Comment Performing Organization Information: Site ID: [id number] Name: [facility] Address: [address] [place] [phone] Director: Aissatou Van Kristin [facility] Final Resul t [place] [facility] - [place] [address] [phone], * CBC W/DIFF AUTOMATED (12/21/2024 7:16 AM CDT) Only the most recent of2 resultswithin the time period is included. WBC 5.6 3.8 - 10.8 Thousand/u L [place] RBC 4.64 3.80 - 5.10 Million/uL [facility] HGB 13.5 11.7 - 15.5 g/dL [facility] [place] HCT 41.2 35.0 - 45.0 % [facility] [place] MCV 88.8 80.0 - 100.0 fL [place] MCH 29.1 27.0 - 33.0 pg [place] MCHC 32.8 32.0 - 36.0 g/dL [place] Comment: For adults, a slight decrease in the calculated MCHC value (in the range of 30 to 32 g/dL) is most likely not clinically significant; however, it should be interpreted with caution in correlation with other red cell parameters and the patient's clinical condition. RDW 13.6 11.0 - 15.0 % [place] PLT 259 140 - 400 Thousand/u L [place] MPV 8.9 7.5 - 12.5 fL [place] ABS. NEUTROPHILS 3,634 1,500 - 7,800 cells/uL [place] ABS. LYMPHOCYTES 1,495 850 - 3,900 cells/uL [place] ABS. MONOCYTES 347 200 - 950 cells/uL [place] ABS. EOSINOPHILS 101 15 - 500 cells/uL [place] ABS. BASOPHILS 22 0 - 200 cells/uL [place] SEG NEUTROPHILS 64.9 % [place] LYMPHOCYTES 26.7 % [place] MONOCYTES 6.2 % [place] EOSINOPHILS 1.8 % [place] BASOPHILS 0.4 % [place] 12/21/2024 7:16 AM CDT 12/21/2024 7:18 AM CDT Narrative [facility] - [place]DERS - 12/21/2024 4:51 PM CDT FASTING:YES FASTING: YES Resulting Agency Comment Performing Organization Information: Site ID: SL Name: [facility] Address: [address] [place] [address] Director: Aissatou Van us Kristin [facility] Final Resul t [facility] [place] [address] [address] [facility] [place] [address], * HEMOGLOBIN, GLYCOSYLATED (09/12/2023 9:27 AM ESCROW PROCESSOR) HGB A1C 5.0 <5.7 % of total Hgb [facility] Comment: For the purpose of screening for the presence of diabetes: <5.7% Consistent with the absence of diabetes 5.7-6.4% Consistent with increased risk for diabetes (prediabetes) > or =6.5% Consistent with diabetes This assay result is consistent with a decreased risk of diabetes. Currently, no consensus exists regarding use of hemoglobin A1c for diagnosis of diabetes in children. According to [place] Diabetes Association (ADA) guidelines, hemoglobin A1c <7.0% represents optimal control in non- diabetic patients. Different metrics may apply to specific patient populations. Standards of Medical Care in Diabetes(ADA). 09/12/2023 9:27 AM ESCROW PROCESSOR 09/12/2023 9:29 AM ESCROW PROCESSOR Narrative [facility] - [place] - 09/12/2023 10:23 PM ESCROW PROCESSOR FASTING:YES FASTING: YES Resulting Agency Comment Performing Organization Information: Site ID: SL Name: [facility] Address: [address] [place] [id number] Director: Aissatou Van Kristin [facility] Final Resul t [facility] - [place] [facility] [address], [place] * OUTSIDE LAB (SCAN) (02/18/2023) Only the most recent of6 resultswithin the time period is included. 02/18/2023 us [facility] Scanned SCANNING Final Resu lt * PROCEDURE GENERIC (07/30/2022) 07/30/2022 us [facility] Scanned SCANNING Final Resu lt * (ABNORMAL) TERESA IFA SCREEN W/RFX TO TITER/CASCADE (07/10/2022 9:10 AM CDT) TERESA Positive(A ) [facility] 1 Comment: Negative <1:80 Borderline 1:80 Positive >1:80 07/10/2022 9:10 AM CDT 07/10/2022 Narrative [facility] - 07/12/2022 2:10 PM CDT Performed at: 01 - [facility] [id number] Organ Tuner: Faustino Gonzalez PhD, Phone: [phone] us Kristin Villarreal APNP LABORATORY Final Resul t [facility] [address] [place] [address] [facility] 1 * (ABNORMAL) ANTINUCLEAR ANTIBODY WI RFX (07/10/2022 9:10 AM CDT) TERESA PATTERN 1:160(H) [facility] 1 Comment: Dense Fine Speckled pattern is noted. This pattern suggests the presence of DFS70 antibody which has a low prevalence in systemic autoimmune rheumatic diseases. ICAP nomenclature: AC-2,4,5,29 NOTE Comment [facility] 1 Comment: For more information about Hep-2 cell patterns use ANApatterns.org, the official website for the International Consensus on Antinuclear Antibody (TERESA) Patterns (ICAP). A positive TERESA result may occur in healthy individuals (low titer) or be associated with a variety of diseases. See interpretation chart which is not all inclusive: Pattern Antigen Detected Suggested Disease Association Homogeneous DNA(ds,ss), SLE - High titers Nucleosomes, Histones Drug-induced SLE Speckled Sm, MGMT ANALYST, SCL-70, SLE,MCTD,PSS (diffuse form), SS-A/SS-B Sjogrens Nucleolar SCL-70, PM-1/SCL High titers Scleroderma, PM/DM Centromere Centromere PSS (limited form) w/Crest syndrome variable Nuclear Dot Sp100,[id number] Primary Biliary Cirrhosis Nuclear GP210, Primary Biliary Cirrhosis Membrane jerrica A,B,C DNA (DS) ANTIBODY <1 0 - 9 IU/mL [facility] 1 Comment: Negative <5 Equivocal 5 - 9 Positive >9 MGMT ANALYST (U1) AB S/P/B <0.2 0.0 - 0.9 AI [facility] 1 SM ANTIBODY <0.2 0.0 - 0.9 AI [facility] 1 MGMT ANALYST (U1) AB S/P/B <0.2 0.0 - 0.9 AI [facility] 1 SCL 70 S/P/B <0.2 0.0 - 0.9 AI [facility] 1 SSA ANTIBODY <0.2 0.0 - 0.9 AI [facility] 1 SSB ANTIBODY <0.2 0.0 - 0.9 AI [facility] 1 CHROMATIN (NUCLEOSOMAL)AB <0.2 0.0 - 0.9 AI [facility] 1 RIBOSOMAL P ANTIBODY <0.2 0.0 - 0.9 AI [facility] 1 KAMALA-1 ANTIBODY <0.2 0.0 - 0.9 AI [facility] 1 CENTROMERE B AB S/P/B <0.2 0.0 - 0.9 AI [facility] 1 COMMENT Comment [facility] 1 Comment: Autoantibody Disease Association Condition Frequency Antinuclear Antibody, SLE, mixed connective Direct (TERESA-D) tissue diseases dsDNA SLE 40 - 60% Chromatin Drug induced SLE 90% SLE 48 - 97% SSA (Ro) SLE 25 - 35% Sjogren's Syndrome 40 - 70% Lupus 100% SSB (La) SLE 10% Sjogren's Syndrome 30% Sm (anti-Costa) SLE 15 - 30% MGMT ANALYST Mixed Connective Tissue Disease 95% (U1 nRNP, SLE 30 - 50% anti-ribonucleoprotein) Polymyositis and/or Dermatomyositis 20% Scl-70 (antiDNA Scleroderma (diffuse) 20 - 35% topoisomerase) Crest 13% Kamala-1 Polymyositis and/or Dermatomyositis 20 - 40% Centromere B Scleroderma - Crest variant 80% Ribosomal P SLE 10 - 20% 07/10/2022 9:10 AM CDT 07/10/2022 Narrative [facility] - 07/12/2022 2:10 PM CDT Performed at: - [facility] [id number] Organ Tuner: Faustino Gonzalez PhD, Phone: [phone] us Kristin H Cherelle [facility] Final Resul t [facility] [address] [place] [address] [facility] 1 * XR LUMB SPINE 3V (03/19/2022 3:17 PM CDT) Anatomical Region Laterality Modality Spine Radiographic Marley ging 03/19/2022 3:19 PM CDT Impressions 03/19/2022 3:20 PM CDT IMPRESSION: Chronic L4-L5 disc disease Ordered By: SANJAY RDZ Interpreted By: Fahad Hopkins MD, 03/19/2022 3:19 PM Narrative 03/19/2022 3:20 PM CDT 3 VIEWS OF THE LUMBAR SPINE Clinical History: Low back pain Comparison: None 3 views of the lumbar spine demonstrate no evidence of fracture or malalignment. The vertebral body heights are symmetric and within normal limits throughout. The intervertebral disc heights demonstrate loss of disc height at the L4-L5 level with associated degenerative changes in the adjacent endplates. The facets are normally aligned. The spinous processes and transverse processes appear normal Procedure Note Fahad Hopkins MD - 03/19/2022 3 VIEWS OF THE LUMBAR SPINE Clinical History: Low back pain Comparison: None 3 views of the lumbar spine demonstrate no evidence of fracture ormalalignment. The vertebral body heights are symmetric and within normallimits throughout. The intervertebral disc heights demonstrate loss ofdisc height at the L4-L5 level with associated degenerative changes in theadjacent endplates. The facets are normally aligned. The spinous processesand transverse processes appear normal IMPRESSION: Chronic L4-L5 disc disease Ordered By: SANJAY RDZ Interpreted By: Fahad Hopkins MD, 03/19/2022 3:19 PM Sanjay Rdz DO GENERAL IMAGING Final Result * XR CERV SPINE 3V (03/19/2022 3:17 PM CDT) Anatomical Region Laterality Modality Spine Radiographic Marley ging 03/19/2022 3:29 PM CDT Impressions 03/19/2022 3:35 PM CDT IMPRESSION: 1. Possible muscle spasm. 2. Asymmetric degenerative disc disease C5-6. Referred By: Interpreted By: Steve Haynes MD, 03/19/2022 3:29 PM Narrative 03/19/2022 3:35 PM CDT Exam: Cervical spine x-ray No comparison INDICATION: Pain over the last few months with no injury. Polyarthralgia. TECHNIQUE: 4 views FINDINGS: Bilateral cervical ribs. Right-sided finding is more inferiorly angled and may abut or possibly partially fused with the first rib. Straightening of cervical spine could be positioning or muscle spasm. Normal vertebral body heights and alignment. Asymmetric degenerative disc disease at C5-6. Endplate sclerosis with anterior and posterior osteophytes. Normal prevertebral soft tissue thickness. On the frontal view, appearance of flowing mildly heterogeneous bone density over the region of the facets bilaterally. Uncertain etiology and significance. This could be ligamentous calcification, but there are no similar findings on the other views. Minimal facet sclerosis at C6-7. Procedure Note Steve Haynes MD - 03/19/2022 Exam: Cervical spine x-ray No comparison INDICATION: Pain over the last few months with no injury.Polyarthralgia. TECHNIQUE: 4 views FINDINGS: Bilateral cervical ribs. Right-sided finding is more inferiorlyangled and may abut or possibly partially fused with the first rib.Straightening of cervical spine could be positioning or muscle spasm.Normal vertebral body heights and alignment. Asymmetric degenerative disc disease at C5-6. Endplate sclerosis withanterior and posterior osteophytes. Normal prevertebral soft tissuethickness. On the frontal view, appearance of flowing mildly heterogeneous bonedensity over the region of the facets bilaterally. Uncertain etiology andsignificance. This could be ligamentous calcification, but there are nosimilar findings on the other views. Minimal facet sclerosis at C6-7. IMPRESSION: 1. Possible muscle spasm. 2. Asymmetric degenerative disc disease C5-6. Referred By: Interpreted By: Steve Haynes MD, 03/19/2022 3:29 PM Sanjay Rdz DO GENERAL IMAGING Final Result * RHEUMATOID FACTOR, QUANT (03/19/2022 2:39 PM CDT) Pathologist [facility] RHEUMATOID FACTOR <10 <15 IU/ML 03/19/2022 4:01 PM CDT [facility] 03/19/2022 2:39 PM CDT Sanjay Rdz DO LABORATORY Final Result [facility] [address] [place] [address], [place] [phone] * SED RATE, ERYTHROCYTE (ESR) (03/19/2022 2:39 PM CDT) [facility] ESR 3 <20 MM/HR 03/19/2022 3:35 PM CDT [facility] Comment:Testing performed on Alcsudheer iSED. 03/19/2022 2:39 PM CDT Sanjay Rdz DO LABORATORY Final Result [facility] [address] [place] [address], [place] [phone] * C-REACTIVE PROTEIN (03/19/2022 2:39 PM CDT) Pathologist [facility] C-REACTIVE PROTEIN <0.29 <0.29 mg/dL 03/19/2022 4:01 PM CDT [facility] 03/19/2022 2:39 PM CDT Sanjay Rdz DO LABORATORY Final Result [facility] [address] [place] [address], * Ear Cerumen Removal (12/25/2021 11:13 AM CDT) Narrative Regulo Osullivan MD - 12/25/2021 11:13 AM CDT Regulo Osullivan MD 12/25/2021 11:19 AM Ear Cerumen Removal Date/Time: 12/25/2021 11:13 AM Performed by: Regulo Osullivan MD Authorized by: Regulo Osullivan MD Anesthesia: Local Anesthetic: none Location details: right ear Patient tolerance: patient tolerated the procedure well with no immediate complications Procedure type: curette Sedation: Patient sedated: no Regulo Osullivan MD PROCEDURE/MINOR SURGICA L ORDERABLES Final Result * TEST AUTHORIZATION (10/16/2020 1:07 PM ESCROW PROCESSOR) REPORT STATUS COMMENT [facility] Comment: Ginny Brockrev CMP14 Default Ambjose Abbrev CMP14 Default A hand-written panel/profile was received from your office. In accordance with the [facility] Ambiguous Test Code Policy dated March 2003, we have completed your order by using the closest currently or formerly recognized AMA panel. We have assigned Comprehensive Metabolic Panel (14), Test Code #911982 to this request. If this is not the testing you wished to receive on this specimen, please contact the [facility] Client Inquiry/Technical Services Department to clarify the test order. We appreciate your business. Ambig Abbrev LP Default Ambig Abbrev LP Default A hand-written panel/profile was received from your office. In accordance with the [facility] Ambiguous Test Code Policy dated March 2003, we have completed your order by using the closest currently or formerly recognized AMA panel. We have assigned Lipid Panel, Test Code #036916 to this request. If this is not the testing you wished to receive on this specimen, please contact the [facility] Client Inquiry/Technical Services Department to clarify the test order. We appreciate your business. 10/16/2020 1:07 PM ESCROW PROCESSOR 10/16/2020 Narrative [facility] - 10/17/2020 6:08 AM ESCROW PROCESSOR Performed at: - [address] [id number] Organ Tuner: Faustino Gonzalez PhD, Phone: [phone] Sanjay Rdz DO LABORATORY Final Result [facility] [address] [place] [address] [facility] 1 Visit Diagnoses Diagnosis Start Date Mixed stress and urge incontinence 10/09/2020 Screening for diabetes mellitus (DM) Screening for diabetes mellitus 10/09/2020 Screening, lipid Screening for lipoid disorders 10/09/2020 Microscopic colitis, unspecified microscopic colitis type 10/09/2020 Chronic tension-type headache, not intractable Chronic tension type headache 10/09/2020 Adjustment disorder with anxious mood Adjustment disorder with anxiety 10/09/2020 Hair loss Alopecia, unspecified 10/23/2020 Shortness of breath 10/23/2020 History of COVID-19 10/23/2020 Mixed hyperlipidemia 10/23/2020 Microscopic colitis, unspecified microscopic colitis type 10/23/2020 Mixed stress and urge incontinence 11/17/2020 Shortness of breath 11/22/2020 Mixed stress and urge incontinence 12/06/2020 Mixed stress and urge incontinence 12/20/2020 Mixed stress and urge incontinence 01/15/2021 Impacted cerumen of right ear Impacted cerumen 12/25/2021 Seasonal allergic rhinitis due to pollen 12/25/2021 Bilateral chronic serous otitis media Simple or unspecified chronic serous otitis media 12/25/2021 Cough 12/26/2021 Polyarthralgia Pain in joint, multiple sites 03/14/2022 Polyarthralgia Pain in joint, multiple sites 03/19/2022 Polyarthralgia Pain in joint, multiple sites 03/19/2022 DDD (degenerative disc disease), cervical Degeneration of cervical intervertebral disc 03/28/2022 DDD (degenerative disc disease), lumbar Degeneration of lumbar or lumbosacral intervertebral disc 03/28/2022 DDD (degenerative disc disease), cervical Degeneration of cervical intervertebral disc 04/19/2022 DDD (degenerative disc disease), lumbar Degeneration of lumbar or lumbosacral intervertebral disc 04/19/2022 Microscopic colitis, unspecified microscopic colitis type 07/10/2022 Arthralgia, unspecified joint 07/10/2022 Adjustment disorder with anxious mood Adjustment disorder with anxiety 07/10/2022 Mixed hyperlipidemia 07/10/2022 Overactive bladder Hypertonicity of bladder 07/10/2022 Mixed stress and urge incontinence 07/10/2022 TERESA positive Other and unspecified nonspecific immunological findings 07/16/2022 Hyperglycemia Other abnormal glucose 03/25/2023 Routine medical exam Routine general medical examination at a health care facility 03/25/2023 Other fatigue 03/25/2023 BMI 28.0-28.9,adult Body Mass Index 28.0-28.9, adult 03/25/2023 Snoring Other dyspnea and respiratory abnormality 09/10/2023 Wheezing 09/10/2023 Gasping for breath 09/10/2023 BMI 30.0-30.9,adult Body Mass Index 30.0-30.9, adult 09/10/2023 GINGER (obstructive sleep apnea) Obstructive sleep apnea (adult) (pediatric) 11/19/2023 Acute non-recurrent frontal sinusitis 12/09/2023 Antibiotic-induced yeast infection 12/09/2023 GINGER (obstructive sleep apnea) Obstructive sleep apnea (adult) (pediatric) 02/10/2024 Chronic cough Cough 02/10/2024 Overweight with body mass index (BMI) of 29 to 29.9 in adult 02/10/2024 Hyperglycemia Other abnormal glucose 02/10/2024 Mixed hyperlipidemia 02/10/2024 Mixed hyperlipidemia 02/27/2024 Overweight with body mass index (BMI) of 29 to 29.9 in adult 02/27/2024 Hyperglycemia Other abnormal glucose 02/27/2024 Overweight with body mass index (BMI) of 25 to 25.9 in adult 04/06/2024 Overweight with body mass index (BMI) of 25 to 25.9 in adult 04/29/2024 Overweight with body mass index (BMI) of 25 to 25.9 in adult 05/28/2024 Dysfunction of right eustachian tube Dysfunction of Eustachian tube 05/28/2024 COVID-19 06/23/2024 Overweight with body mass index (BMI) of 25 to 25.9 in adult 07/01/2024 Overweight (BMI 25.0-29.9) Overweight 08/25/2024 Overweight (BMI 25.0-29.9) Overweight 08/31/2024 Acute cough 10/07/2024 Influenza A Influenza with other respiratory manifestations 10/08/2024 Acute cough 10/08/2024 Body aches Generalized pain 10/08/2024 Chills Chills (without fever) 10/08/2024 Fever, unspecified fever cause 10/08/2024 Exposure to influenza Contact with or exposure to other viral diseases 10/08/2024 Overweight (BMI 25.0-29.9) Overweight 12/15/2024 Other fatigue 12/15/2024 Screening for lipid disorders 12/15/2024 Need for hepatitis C screening test Special screening examination for other specified viral diseases 12/15/2024 Hypocalcemia 12/23/2024 DDD (degenerative disc disease), cervical Degeneration of cervical intervertebral disc 04/27/2025 Degeneration of intervertebral disc of lumbar region with discogenic back pain 04/27/2025 Overweight with body mass index (BMI) of 25 to 25.9 in adult 04/27/2025 Gastroesophageal reflux disease without esophagitis Esophageal reflux 04/27/2025 Care Teams Licensed Esthetician Relationship Specialty Start Date End Date Kristin Villarreal APNP [address] [place] [id number] PCP - General NURSE PRACTITIONER 07/10/22
--- OUTSIDE RECORDS SUMMARY | 2025-05-10 09:25 | XMS_ITS | Clinical Summary ---
Author Organization [facility] Address [address] [facility] [place] [address] Care Team Providers Care Sanitary Plumber Name Role Phone Corey Stephenson MD Primary Care Provider + Source Comments [facility],non-owned Affiliates and Associated Physician Practices is amultiple site organization consisting of ambulatory clinics and hospital sitesin [place], [place], [place] and [place]. This disclosure is being madepursuant to the Care Everywhere program and may not contain all information available regarding this patient. Last updated 18.[facility] Allergies No known active allergies Medications * Be aware that medications may not be up to date on this document. Alwaysverify current medications with the patient. spironolactone (ALDACTONE) 25 MG tablet Take 25 mg by mouth once daily Active oxybutynin CR 24hr (DITROPAN-XL) 10 MG tablet Take 10 mg by mouth once daily Active Social History Tobacco Use Types Packs/Day Years Used Date Smoking Tobacco: Never Assessed Comments Unknown Sex and Gender Information Value Date Recorded Sex Assigned at Not on file Legal Sex Female 5:51 PM PRINTED CIRCUIT BOARDS BEVELER Gender Identity Not on file Sexual Orientation Not on file Last Filed Vital Signs Vital Sign Reading Time Taken Comments Blood Pressure - - Pulse - - Temperature - - Respiratory Rate - - Oxygen Saturation - - Inhaled Oxygen Concentration - - Weight 68 kg (150 lb) 08/24/2019 9:40 AM PRINTED CIRCUIT BOARDS BEVELER Height 167.6 cm (5' 6) 08/24/2019 9:40 AM PRINTED CIRCUIT BOARDS BEVELER Body Mass Index 24.21 08/24/2019 9:40 AM PRINTED CIRCUIT BOARDS BEVELER Plan of Treatment Health Maintenance Due Date Last Done Comments COLOGUARD (AGES 45-75) - COL ON CA SCREENING 1979 COLON MONITORING 1979 COLONOSCOPY - COLON CA SCREENING 1979 CT COLONOGRAPHY - COLON CA SCREENING 1979 Colorectal Cancer Screening 1979 FIT - COLON CA SCREENING 1979 FLEX SIG - COLON CA SCREENING 1979 LIPID TESTING 1979 MAMMOGRAM 1979 HIV SCREENING 1994 HEPATITIS C SCREENING 06/10/1997 DTAP/TDAP/TD VACCINES (1 - Tdap) 1998 HEPATITIS B VACCINE (1 of 3 - 19+ 3-dose series) 1998 HPV VACCINE (1 - 3-dose SCDM series) 2006 COVID-19 VACCINE (1 - 2023-2 5 season) 2024 DEPRESSION SCREENING 09/29/2024 INFLUENZA VACCINE (#1) 2025 ZOSTER VACCINE (1 of 2) 2029 HIB VACCINE Aged Out No longer eligi ble based on patient's age to complete this topic MENINGOCOCCAL (Group B) VACC INE SHARED DECISION-MAKING Aged Out No longer eligibl e based on patient's age to complete this topic MENINGOCOCCAL GROUPS A/C/Y/W VACCINE Aged Out No longer eligible b ased on patient's age to complete this topic PNEUMOCOCCAL VACCINE Aged Out No long er eligible based on patient's age to complete this topic [place] [address] [address] [address] Care Teams Sanitary Plumber Relationship Specialty Start Date End Date Corey Stephenson MD [address] [place] [id number] PCP - General 10/18/14
--- OUTSIDE RECORDS SUMMARY | 2025-05-10 09:25 | XMS_ITS | Encounter Summary ---
Author Organization [facility] Address [address] [place] [address] Care Team Providers Care Business Operations Manager Name Role Phone Kristin Villarreal Primary Care Provider [phone] Encounter Details Date Type Department Care Team (Late st Contact Info) Description 07/12/2024 [employer] Message Enc [facility] Family [facility] Internal Medicine [facility] [address] [place] [address] Kristin Villarreal APNP [address] [place], [place] [id number] Efren Social History Tobacco Use Types Packs/Day Years Used Date Smoking Tobacco: Former Cigarettes 1 09/29/1999 - 07/30/2020 Passive Smoke Exposure: Past Smokeless Tobacco: Never Alcohol Use Standard Drinks/Week Comments Yes 0 (1 standard drink = 0.6 oz pur e alcohol) rarely AUDIT-C Answer Date Recorded Q1: How often do you have a drink containing alc ohol? Monthly or less 10/09/2020 Average Number of Drinks Not on file 021 Frequency of Binge Drinking Not on file 09/29 PHQ-2 Answer Date Recorded Patient Health Questionnaire-2 Score 0 02/10/2024 Comments No Sex and Gender Information Value Date Recorded Sex Assigned at Female 11/17/2023 8:42 AM ELECTRIC DRILL OPERATOR Legal Sex Female 9:11 AM ELECTRIC DRILL OPERATOR Gender Identity Female 11/17/2023 8:42 AM ELECTRIC DRILL OPERATOR Sexual Orientation Not on file documented as of this encounter Plan of Treatment Not on file documented as of this encounter Visit Diagnoses Not on filedocumented in this encounter Additional Health Concerns Assessment Noted Time PHQ-9 Depression Total Score: 3 07/10/20 22 9:09 AM CDT documented as of this encounter Care Teams Business Operations Manager Relationship Specialty Start Date End Date Kristin Villarreal APNP [address] [place] [id number] PCP - General NURSE PRACTITIONER 07/10/22 documented as of this encounter
== END 2025-05-10 09:00 | disposition home or self-care (01) ==
LOC: ANHAUDIO 09:00
PROVIDERS: PCP Registered Nurse; Visit Provider Otolaryngology Otolaryngology/Facial Plastic Surgery
DX: H90.3 Sensorineural hearing loss, bilateral (principal); H93.13 Tinnitus, bilateral; H74.8X3 Other specified disorders of middle ear and mastoid, bilateral; H73.893 Other specified disorders of tympanic membrane, bilateral
CPT/HCPCS: 92557; 92567